=== PATIENT | female | born 1945 | race African-American/Black ===

== ENCOUNTER 2017-03-19 12:43 | Emergency (ER) | payer MEDICARE, BC ==
[2017-03-19 13:09] LABS: Bilirubin Small (Negative); Glucose, Urine (Dipstick) Negative (Negative)
[2017-03-19 13:10] LABS: Blood, Urine Negative (Negative); Ketone, Urine Trace mg/dL (Negative); Nitrite Negative (Negative); Protein, Urine (Dipstick) 100 mg/dL (Neg-Trace); Urobilinogen 0.2 mg/dL (0.2-1.0)
[2017-03-19 13:36] LABS: Bacteria/HPF None Seen HPF (None Seen); RBC/HPF 0-3 HPF (0-3); WBC/HPF 0-3 HPF (0-3)
[2017-03-19] MEDS ORDERED: oxyCODONE 5 MG TAB PO SCH (13:45)
[2017-03-19 13:47] LABS: Hyaline Casts/LPF 4-6 HYALINE CAST LPF (0-3 Hyaline)
[2017-03-19 13:48] LABS: Renal Epithelial None Seen HPF (0-3); Transitional Epithelial NONE SEEN HPF (0-3)
[2017-03-19 14:23] LABS: #Eosinphils 0.1 thou/uL (0.0-0.7); #Lymphocytes 1.4 thou/uL (1.20-3.40); #Monocytes 0.6 thou/uL (0.11-0.59); #Neutrophils 7.8 thou/uL (1.40-6.50); %Basophils 0.4 % (0.0-1.0); %Eosinophils 0.6 % (0.0-10.0); %Lymphocytes 13.8 % (21.0-51.0); %Monocytes 5.7 % (0.0-10.0); Hematocrit 31.3 % (36.0-47.0); Mean Platelet Volume 6.1 fL (7.4-10.4); Red Blood Cell (RBC) Count 3.29 mill/uL (4.20-5.40); White Blood Cell (WBC) Count 9.8 thou/uL (4.8-10.8)
--- NOTE | 2017-03-19 14:30 | RAD ---
LUMBAR SPINE 3 VIEWS: HISTORY: Low back pain. FINDINGS: Comparison is made with the exam of 12/30/16. Multilevel degenerative changes are seen with stable minimal anterolisthesis of L5 over S1. No comp ression fracture or bony destruction was seen. Vascular calcifications are present. IMPRESSION: Lumbar spondylosis. POS: LIZZETTE
[2017-03-19 14:51] LABS: Anion Gap 17 mmol/L (10-20); BUN (Urea Nitrogen) 28 mg/dL (9.8-20.1); Calc. Creatinine Clearance 0 mL/min (70-130); Calcium 9.4 mg/dL (7.8-10.44); Carbon Dioxide 28 mmol/L (23-31); Chloride 98 mmol/L (98-107); Estimated GFR-MDRD 34
== END 2017-03-19 18:25 | disposition home or self-care (01) ==
LOC: ERS 12:43
DX: M54.5 Low back pain (principal); G89.29 Other chronic pain; I10 Essential (primary) hypertension
CPT/HCPCS: 36415; 51701; 72100; 80048; 81003; 81015; 85025; 96360; A4353

== ENCOUNTER 2017-03-22 15:16 | Outpatient (CLI) | payer MEDICARE, BC ==
--- NOTE | 2017-03-22 17:26 | MRI ---
NONCONTRAST ENHANCED MRI IMAGES LUMBAR SPINE: 03/22/17 HISTORY: Back pain. COMPARISON: Comparison made to previous CT from 02/07/17. Multiplanar and multisequence noncontrast enhanced MRI images lumbar spine is performed. There is a left perirenal cyst. There is interval development of a left psoas abscess at the L3 level. T12-L1: Unremarkable. L1-2: Disc desiccation is seen. There is a broad based disc bulge with bilateral facet hypertrophy r esulting in mild central spinal stenosis. The neural foramen are patent. L2-3: Disc desiccation and degeneration is seen. Modic type II changes seen in the inferior end plat e of L2 and superior end plate of L3. There is a broad based disc bulge with bilateral facet and lig amentum flavum hypertrophy resulting in moderate to severe L2-3 central and lateral recess stenosis. L3: There is a soft tissue mass compressing the left anterior L3 thecal sac. This may represent a po ssible left epidural abscess measuring approximately 10.5 x 12.7 in the axial plane and superiorly i nferiorly approximately 18.8 mm in the left L3 epidural space. L3-4: There is decreased signal on T1 weighted sequences in the inferior end plate of L3 and superio r end plate of L4 with fluid seen in the L3-4 intervertebral disc space. This is concerning for disc itis and adjacent osteomyelitis with extension involving the left psoas muscle medially compatible w ith psoas abscess. At L3-4, there is severe central and lateral recess stenosis. L4-5: Edema is again seen in the inferior end plate of L4 and superior end plate of L5 as well as fl uid in the L4-5 intervertebral disc space. There is severe facet and ligamentum flavum hypertrophy r esulting in critical L4-5 central and lateral recess stenosis. Severe bilateral neural foraminal parker rowing is also seen. There is grade anterolisthesis of L4 on L5 due to the facet hypertrophy. L5-S1: Bilateral facet hypertrophy is seen. The intervertebral disc space is unremarkable. Moderate right and mild left sided neural foraminal narrowing is seen. IMPRESSION: Significant end plate intervertebral body edema involving the inferior aspect of L3, superior and in ferior aspect of L4 and superior end plate of L5 with L3-4 and L4-5 disc signal abnormalities concer anahi for discitis. There appears to be a left sided L3 level psoas abscess. There is also a left L3 area of soft tissue density concerning for possible epidural abscess. Unfortunately, gadolinium was not given to better characterize these multiple levels of pathology. It may be worthwhile to conside r repeat exam with gadolinium to further characterize. Findings discussed with Dr. Ashley Colin at 4:46 p.m. on 03/22/17. Code CR POS: [email or web address]
== END 2017-03-22 15:17 | disposition home or self-care (01) ==
LOC: SCSMRI 15:16
PROVIDERS: ATTEND Physical Medicine & Rehabilitation
DX: M54.9 Dorsalgia, unspecified (principal)
CPT/HCPCS: 72148

== ENCOUNTER 2017-03-22 19:37 | Inpatient (IN) | payer MEDICARE, BC ==
[2017-03-22] MEDS ORDERED: Acetaminophen 500 MG TAB ONE (20:10)
[2017-03-22 20:36] LABS: #Lymphocytes 1.2 thou/uL (1.20-3.40); #Monocytes 0.4 thou/uL (0.11-0.59); #Neutrophils 7.8 thou/uL (1.40-6.50); %Basophils 0.1 % (0.0-1.0); %Eosinophils 0.1 % (0.0-10.0); %Lymphocytes 13.1 % (21.0-51.0); %Monocytes 4.2 % (0.0-10.0); Hematocrit 33.1 % (36.0-47.0); Mean Platelet Volume 6.2 fL (7.4-10.4); Red Blood Cell (RBC) Count 3.44 mill/uL (4.20-5.40); White Blood Cell (WBC) Count 9.4 thou/uL (4.8-10.8)
[2017-03-22 20:55] LABS: Lactic Acid - Sepsis 1.3 mmol/L (0.5-2.2)
[2017-03-22] MEDS ORDERED: traMADol HCl 50 MG TAB PO PRN (20:58)
[2017-03-22 21:01] LABS: ALT (SGPT) 13 U/L (8-55); AST (SGOT) 14 U/L (5-34); Alkaline Phosphatase 74 U/L (40-150); Anion Gap 18 mmol/L (10-20); BUN (Urea Nitrogen) 17 mg/dL (9.8-20.1); Bilirubin, Total 0.7 mg/dL (0.2-1.2); Calc. Creatinine Clearance 0 mL/min (70-130); Calcium 9.8 mg/dL (7.8-10.44); Carbon Dioxide 24 mmol/L (23-31); Chloride 104 mmol/L (98-107); Estimated GFR-MDRD 50; Globulin 4.8 g/dL (2.4-3.5); Protein, Total 7.8 g/dL (6.0-8.3)
[2017-03-22 21:14] LABS: PTT 25.2 SEC (22.9-36.1); Prothrombin Time 15.2 SEC (12.0-14.7)
[2017-03-22] MEDS ORDERED: Milk Of Magnesia 30 ML UDCUP PO PRN (21:38)
[2017-03-22] MEDS ORDERED: Bisacodyl 10 MG SUPP PR PRN (21:38)
[2017-03-22] MEDS ORDERED: Ondansetron HCl/PF 4 MG/2 ML Vial IVP PRN (21:38)
--- NOTE | 2017-03-22 23:54 | MRI ---
MRI LUMBAR SPINE POSTCONTRAST 03/22/17 HISTORY: Severe back pain and fever with precontrast MRI examination demonstrating abnormal findings in the l ower lumbar spine. Postcontrast imaging was suggested. COMPARISON: Precontrast MRI lumbar spine 03/22/17 obtained earlier today. FINDINGS: Fluid signal intensity was seen in the L3-4 and L4-5 intervertebral discs on the prior exam. There i s corresponding decreased signal intensity at the end plates at these levels which are not well defi gogo particularly centrally and laterally on the left. Postcontrast images demonstrate enhancement al jory the end plates and in the intervertebral discs suggesting discitis and osteomyelitis at the L3-4 and L4-5 levels. There is also mild paravertebral enhancement seen anterior to these levels consis tent with inflammatory change and infection. There is also mild enhancement of the posterior paraspi nous musculature, particularly at the L4-5 level and extending to the L5-S1 level also likely relate d to infectious and inflammatory process and myositis. As previously described, there is a fluid collection within the left psoas muscle lateral to the L3 vertebral body. This demonstrates corresponding decreased T1 weighted signal intensity centrally wit h peripheral enhancement. This measures 2 cm x 1.2 cm and is most compatible with a small left psoas abscess. Posterior to the L3 vertebral body and extending to the L3-4 intervertebral disc within the anterola teral epidural space, there is a mass-like area of heterogeneous signal intensity which demonstrated enhancement. This area of abnormal enhancement and abnormal signal intensity extends into the left neural foramen and abuts the enhancement of the left psoas muscle in the region of the left psoas ab scess, and this is likely related to phlegmon and extension of infection through the left neural for amen and into the epidural space. There is also a small rounded focus of enhancement posterior to th e L4 vertebral body in the left anterolateral aspect of the ventral subarachnoid space also likely r elated to associated phlegmon\E\infection which is contiguous with the larger mass-like structure po sterior to the L3 vertebral body. There is fluid signal intensity in the facet joints at the L3-4 and L4-5 levels with mild enhancemen t of the left L4-5 facet joints most consistent with septic facet joint arthritis. The degenerative changes in the lumbar spine were discussed on the precontrast MRI lumbar spine obta ined earlier today, please see that report for further details. There is an incompletely imaged approximately 5.6 cm increased T2 weighted signal intensity structur e in the right hepatic lobe. This demonstrates decreased T1 weighted signal intensity, but there is enhancement of this structure on the postcontrast images. There is a large right hepatic lobe puja ioma seen on CTA of the abdomen on 07/29/12 which likely accounts for this finding. Left renal cysts a re again seen with subcentimeter low signal intensity lesions in each kidney also statistically like ly representing very small cysts. IMPRESSION: 1. Discitis and osteomyelitis at the L3-4 and L4-5 levels with associated enhancement in the pa ravertebral soft tissues both anteriorly as well as posteriorly at these levels consistent with alec cent infectious/inflammatory changes. 2. Left psoas abscess with extension of abnormal enhancement through the left neural foramen at the L3-4 level and into the left aspect of the central canal anteriorly as well as anterolaterally to the thecal sac resulting in mass effect. This abnormal enhancement is likely related to extension of infectious and inflammatory changes\E\phlegmon. There is no fluid in this region to suggest that this represents an abscess at this time although this is likely related to extension of infection a nd inflammatory changes from the left psoas muscle. There is also mass-like area of enhancement seen posterior to the L4 vertebral body which is likely due to extension of the inflammatory/infectious process extending from the L3-4 level. 3. 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 4. Myositis of posterior musculature posterior to L3-4 and L4-5 levels. 5. Enhancing lesion in the right hepatic lobe. Patient demonstrated a hemangioma in the right h epatic lobe on prior CT exam on 07/29/12. It was also present on a prior study in 2008. 6. Left renal cysts with subcentimeter low signal intensity lesions in each kidney also statist ically likely representing cysts. 7. Degenerative changes in the lumbar spine are described on prior noncontrast MR of lumbar spi ne. POS: LIZZETTE
[2017-03-22] MEDS: Sodium Chloride 0.9% 1,000 ML IV SCH (23:58)
--- NOTE | 2017-03-23 01:26 | PDOC.PN ---
- Subjective Encounter Start Date: 03/23/17 Encounter Start Time: 01:00 CC: Consult called for medical management Sub: Pt came to hospital for back pain. Consult was called for medical management. Pt c/o some back pain, denies any other complaints - Objective Vital Signs & Weight: Vital Signs (12 hours) BP 03/23/17 00:46 199/96 H Result Diagrams: 03/22/17 20:20 03/22/17 20:20 Phys Exam - Physical Examination Constitutional: NAD HEENT: moist MMs Neck: no JVD Respiratory: no wheezing, no rales, no rhonchi no accessory muscle usage seen Cardiovascular: RRR, no significant murmur, no rub Gastrointestinal: soft, non-tender no guarding, no rebound tenderness Musculoskeletal: no edema moves both lower extremities Neurological: non-focal Psychiatric: normal affect, A&O x 3 Skin: no rash Dx/Plan - Plan Pt is 71 yrs old female now admitted to hospital due to back pain 1. Discitis + Possible epidural abscess: Management per primary team On iv antibiotics per Primary team ID consulted 2. HTN uncontrolled: Will continue home bp meds PRN hydralazine and clonidine. We will monitor bp closely 3. CKD stage 3: Creatinine close to baseline We will monitor creatinine closely Avoid NSAID, nephrotoxic medications 4. Anemia of chronic disease: Monitor hgb closely No need for blood transfusion at present 5. Pain + DVT prophylaxis: Management per primary team case d/w pt & RN
--- NOTE | 2017-03-23 01:31 | CON ---
DATE OF CONSULTATION: 03/22/2017 HISTORY OF PRESENT ILLNESS: Ms. Vasques is a 71-year-old female who I saw in the emergency departm ent [facility]. She complains of low back pain for the past 2 weeks. [facility] of Dr. Colin for the past several weeks for back spasms. She explains that the pain is sharp pain to the lower back and she is severely tender to palpation in the midline lumbar spine. The pain is exacerbated by ambulating. There are no paresthesias to the extremity, no weakness to t he extremity, and she does have a history of incontinence of bowel and bladder since 2009. She has an unsteady gait due to pain and appears in mild distress. An MRI of the lumbar spine without contr ast done that showed significant endplate interval, inner vertebral body edema involving the inferio r aspect of L3, superior and inferior aspect of L4 and superior and endplate of L5 with L3-L4 and L4 -L5, disk signal abnormalities concerning for diskitis. There appears to be a left-sided L3 level p soas abscess and there is also a left L3 area of soft tissue density concerning for possible epidura l abscess. Gadolinium was not given during this MRI scan. Neurosurgery was consulted for these findings on MRI. ALLERGIES: MORPHINE, PENICILLIN. CURRENT MEDICATIONS: Medications on last visit 03/19/2017 was; 1. Tramadol 100 mg p.o. t.i.d. 2. Clonidine HCL 0.2 mg p.o. at bedtime. 3. Zantac 150 mg p.o. daily 4. Multivitamin 1 each p.o. daily. 5. Minoxidil 5 mg p.o. b.i.d. 6. Levaquin 500 mg p.o. daily 7. Labetalol HCL 600 mg p.o. b.i.d. 8. Iron 65 mg p.o. daily/ 9. Furosemide 80 mg p.o. daily. 10. Fish oil 1000 mg p.o. daily. 11. Vitamin B12 of 1000 mcg p.o. daily. 12. Baclofen 10 mg p.o. t.i.d. p.r.n. 13. Baby aspirin 81 mg p.o. daily. PAST MEDICAL HISTORY: Includes seasonal allergies, genitourinary history of incontinence since 2009 , hypertension has been treated and patient is compliant. She has a history of malignancy primarily in the cervical site, treated with chemotherapy, radiation in 2010. Obesity and arthritis. FEMALE SURGICAL HISTORY: Exploratory laparotomy with myomectomy, surgical history of orthopedics bi lateral hip replacements, cataracts. PSYCHIATRIC HISTORY: No previous psychiatric history. SOCIAL HISTORY: The patient denies alcohol use. The patient denies drug use, denies illicit drug o r smoking history. REVIEW OF SYSTEMS: Ten-point review of systems was completed and is otherwise negative unless state d in the above HPI. PHYSICAL EXAMINATION: VITAL SIGNS: Pulse 115, respiratory rate 22, temperature 99.1, pain 10, O2 sat is 95% on room air, blood pressure is 206/100. GENERAL: The patient is alert and oriented x3, appears to be in mild distress. HEENT: Normocephalic, atraumatic. Hearing is intact. Moist mucous membranes. Trachea is midline. Eyes: Pupils are equal and reactive to light. Extraocular muscles are intact. Sclerae is white, nonicteric. RESPIRATORY: The patient has bilateral symmetric chest rise. Appears to be in no shortness of lev th. CARDIOVASCULAR: The patient has regular rate and rhythm. Normal S1, S2 heart sounds. No distal cy anosis or clubbing. MUSCULOSKELETAL: The patient has 5/5 strength in bilateral upper extremities and 5/5 strength in bi lateral lower extremities. Pulses are equal and symmetric in the upper extremity in the brachial an d radial pulses and bilaterally in the lower extremities, bilaterally in the posterior tibial pulses . She is tender to palpation in the midline lumbar spine. Denies any radicular symptoms in the low er extremities. NEUROLOGIC: Cranial nerves II-XII are grossly intact. Speech is fluent. She answers my questions appropriately. ASSESSMENT: Ms. Vasques is a 71-year-old female who presented with extreme low back pain and back spasms. She was found to have a left-sided L3 level psoas abscess and an L3 epidural abscess. PLAN: Ms. Vasques will be admitted by Medicine. I put a consult in for Dr. Schulte, Infectious Dise ase. I will add Tylenol for fever over 101. I will also add tramadol 50-100 mg q.6 hours p.r.n. fo r pain. We will get an MRI of the lumbar spine with contrast. We will do type and screen, get bloo d cultures, ESR, CRP, PTT and INR and we will make her diet n.p.o. The epidural abscess is big enou gh that we may remove it tomorrow. If there are any further questions, please feel free to contact Neurosurgery.
[2017-03-23 04:45] VITALS: BMI 41.2
[2017-03-23] MEDS: Labetalol HCl 100 MG TAB PO SCH ×2 (06:48→19:57)
--- NOTE | 2017-03-23 07:21 | PRG ---
DATE OF SERVICE: 03/23/2017 I personally interviewed and examined the patient and agree with documentation of Tiago Puckett PA-C, dated 03/22/2017. Briefly, Sam Vasques is a 71-year-old woman who has had 2-3 weeks of low back pain increasing i n severity. The pain got so severe that 2 weeks ago she came to our emergency department with inabi lity to stand. She returned to our emergency department with worsening of the pain and weakness. M R imaging of the spine reveals likely diskitis osteomyelitis with epidural extension and epidural ab scess in the ventral and dorsal epidural space. This involves multiple segments of the lumbar spine . She does not, interestingly, give a her history of diabetes. I am seeing Ms. Vasques this morning after admission and she seems to be comfortable as long as she is not moving whatsoever. When I try to assess her hip flexors she begins to have significant low back and radiating leg pain, there is radicular pain, especially on the right, but also on the left lower extremity. This prevents a full examination of her strength, but she can wiggle her toes. Sh brad can appreciate touch all the way down to the bottom of her feet. She has chronic longstanding inc ontinence. I reviewed the MR images and I am concerned about a fluid collection within the spinal canal. I discussed decompressive laminectomy and washout of her spontaneous epidural abscess. INFORMED CONSENT: I discussed indications, risks, benefits, and alternatives to surgery. The risks discussed included, but were not limited to bleeding, infection, CSF leak, nerve damage, paralysis, incontinence, wheelchair dependence, cardiopulmonary complications of anesthesia, major blood vesse l injury and . She understands the risks and wants to proceed.
[2017-03-23] MEDS ORDERED: Levofloxacin 500 mg/D5W 100 ml Premix Bag ONE (11:05)
[2017-03-23] MEDS ORDERED: Fentanyl 100 MCG/2 ML VIAL ONE ×2 (11:05→13:11)
[2017-03-23] MEDS ORDERED: Thrombin 5000 UNITS/5 ML VIAL ONE (12:10)
[2017-03-23] MEDS ORDERED: Bupivacaine HCl 0.5%/Epinephrine 1:200,000/PF 30 ml Vial ONE (12:10)
[2017-03-23] MEDS ORDERED: Bacitracin Zinc Ointment 30 gm TUBE ONE (12:10)
[2017-03-23] MEDS ORDERED: Sodium Chloride 0.9% 20 ML ONE (12:10)
--- NOTE | 2017-03-23 12:35 | PQF ---
DATE: 03-23-17 ATTN: DR. ZOE BOO Please exercise your independent, professional judgment in responding to the clarification form. Clinical indicators are provided on the bottom of this form for your review Please check appropriate box(s): BMI > 40 with associated diagnosis of: (check one) [ x ] Morbid (Severe) Obesity [ ] Due to excess calories [ ] with Alveolar Hypoventilation (Pickwickian syndrome) [ ] Overweight [ ] Obesity [ ] Other diagnosis [ ] Unable to determine In addition, please specify: Present on Admission (POA): [ ] Yes [ ] No [ ] Unable to Determine For continuity of documentation, please document condition throughout progress notes and discharge summary. Thank You. BMI < 19 Under weight 19 - 24.9 Healthy 25.0 - 29.9 Slightly Overweight 30.0 - 34.9 Obese 35.0 - 39.9 Severely Obese 40.0 and Over Morbidly Obese CLINICAL INDICATORS - SIGNS / SYMPTOMS / LABS BMI: 41.2 NURSE NOTE 03-22-17: 2 PERSON ASSIST NURSE NOTE 03-22-17: TRANSFERRED TO BED WITH 4 PERSON ASSIST RISK FACTORS: NURSE NOTE 03-22-17: 2 PERSON ASSIST NURSE NOTE 03-22-17: TRANSFERRED TO BED WITH 4 PERSON ASSIST H&P: HX OF INCONTINENCE, HX OF MALIGNANCY TO CERVICAL CA TREATED WITH CHEMO, C/O BACK PAIN TREATMENTS: NURSE NOTE 03-22-17: 2 PERSON ASSIST NURSE NOTE 03-22-17: TRANSFERRED TO BED WITH 4 PERSON ASSIST (This form is maintained as a part of the permanent medical record) 2014 [employer]. All Rights Reserved DIANNA [email or web address] Office: [phone] [facility] HOSPITALAlexia
[2017-03-23] MEDS: Gabapentin 300 MG CAP PO SCH ×3 (12:40→19:55)
[2017-03-23] MEDS ORDERED: Clindamycin/D5W 900 mg/50 ml Premix Bag ONE (13:10)
[2017-03-23] MEDS ORDERED: Metoclopramide HCl 10 MG/2 ML VIAL ONE (13:21)
[2017-03-23] MEDS ORDERED: Propofol 200 MG/20 ML VIAL ONE (13:21)
[2017-03-23] MEDS ORDERED: Ondansetron HCl/PF 4 MG/2 ML Vial ONE (13:21)
[2017-03-23] MEDS ORDERED: Esmolol 100 MG/10 ML VIAL ONE (13:21)
[2017-03-23] MEDS ORDERED: Glycopyrrolate 0.2 MG/ML 5 ML SYRINGE ONE (13:21)
[2017-03-23] MEDS ORDERED: Hetastarch 6% 500 ML 500 ML ONE (15:37)
[2017-03-23] MEDS ORDERED: Promethazine HCl 25 MG/ML VIAL SLOW IVP PRN (16:46)
[2017-03-23] MEDS ORDERED: Ondansetron HCl/PF 4 MG/2 ML Vial IVP PRN (16:46)
[2017-03-23] MEDS ORDERED: Promethazine HCl 25 MG/ML VIAL IM PRN (16:46)
[2017-03-23] MEDS: Sodium Chloride 0.9% 1,000 ML IV SCH ×2 (17:18→18:34)
[2017-03-23] MEDS: traMADol HCl 50 MG TAB PO PRN (18:13)
[2017-03-23] MEDS: Diazepam 5 MG TAB PO SCH ×2 (18:34→23:29)
--- NOTE | 2017-03-23 20:23 | OP ---
DATE OF SURGERY: 03/23/2017 SURGEON: Fan Guzman M.D. DIRECTOR OF FINANCE: Tiago Puckett PA-C, PREOPERATIVE INDICATION: Obtained sample for culture, prevent neurological deterioration. PREOPERATIVE DIAGNOSES: Diskitis, osteomyelitis L3-4 and L4-5, epidural abscess L3, spinal stenosis L2-S1. POSTOPERATIVE DIAGNOSIS: Diskitis, osteomyelitis L3-4 and L4-5, epidural abscess L3, spinal stenosi s L2-S1. OPERATIVE PROCEDURE: Decompressive laminectomy, medial facetectomy, foraminotomy L2-3, L3-4, L4-5, L5-S1, removal of ventral epidural abscess L3, sample of L3-4 and L4-5 disk space for culture. PREOPERATIVE MEDICATION: None. Antibiotics given after cultures were obtained, clindamycin 900 mg, Levaquin 500 mg IV. DRAIN NUMBER: 2. DRAIN TYPE: 10 Faro[place] Jorge. OPERATIVE DICTATION: The patient was brought to the operating room. General endotracheal anesthesi a was induced. The patient was positioned prone on the operating table with her chest and hips supp orted by gel-filled chest rolls. A lateral fluoro radiograph was used to plan our incision. The [facility] skin was sterilely prepped and draped. We opened with a 10 blade knife and controlled bleeding with bipolar and monopolar cautery. We used monopolar cautery to dissect through the subcutaneous tissues to the thoracodorsal fascia. We incised the fascia in the midline and we reflected the para spinal muscles off the spinous process and lamina of L2, L3, L4, L5 and the superior portion of the sacrum. A lateral fluoro radiograph was used to confirm the levels upon which we were operating. W e placed self-retaining retractors. We then used an Adson rongeur to remove the spinous process of the inferior portion of L2, all of L3, L4, L5, and S1. We used Kerrison rongeur to fashion a viktoria ctomy from the inferior portion of L5 to the pedicles of L2. We widened our laminectomy defect with Kerrison rongeurs and performed a medial facetectomy to decompress the lateral recesses. We remove d few millimeters of the sacrum. We made sure that the L2-3, L4-5 and S1 nerve roots were decompres sed both in the lateral recesses and in the foramina by performing foraminotomies. We then turned o ur attention to the infectious process. Careful retraction of the thecal sac medially at L3 in the ventral epidural space, there was a soft tissue component there. This was under the L3 nerve root a nd under the thecal sac medial to the pedicle. The ventral epidural soft tissue was degenerative di sk that come out through a small hole in the annulus. The disk itself seemed extremely degenerative and perhaps infectious. We sent multiple samples for pathology. We then incised the L3-4 disk spa ce. Using pituitary rongeur, we removed small fragments of disk from the disk space itself. In the disk space removed, we sent it for culture as well and finally, at the L4-5 interspace, we incised the disk and then advanced the pituitary rongeur through our opening into the space to take samples there as well. We irrigated with bacitracin irrigation after samples were taken and gave IV antibio tics. We controlled bleeding with gentle bipolar cautery and waxed the bone edges. We placed two d rains and vancomycin powder in the wound. We closed the wound in anatomic layers over the drain and we applied a sterile dressing. This was a clean case and no contamination.
[2017-03-23] MEDS ORDERED: Furosemide 40 MG TAB PO SCH (21:00)
[2017-03-23] MEDS: Clindamycin/D5W 600 MG in Premix Bag 1 BAG IVPB SCH (21:36)
[2017-03-23] MEDS: HYDROcodone/Acetaminophen 10/325 mg Tablet PO PRN (21:36)
[2017-03-23] MEDS: Vancomycin HCl 1.25 GM in Sodium Chloride 0.9% 250 ML 250 ML IVPB SCH (23:27)
[2017-03-24] MEDS: tiZANidine HCl 4 MG TAB PO PRN ×3 (02:17→21:52)
[2017-03-24] MEDS: Diazepam 5 MG TAB PO SCH ×4 (05:20→23:54)
[2017-03-24] MEDS: Clindamycin/D5W 600 MG in Premix Bag 1 BAG IVPB SCH ×3 (05:20→21:57)
[2017-03-24] MEDS: Sodium Chloride 0.9% 1,000 ML IV SCH ×2 (05:21→16:43)
[2017-03-24] MEDS: Multivitamin W/ Minerals 1 TAB PO SCH (08:17)
[2017-03-24] MEDS: Gabapentin 300 MG CAP PO SCH ×3 (08:17→21:53)
[2017-03-24] MEDS: Labetalol HCl 100 MG TAB PO SCH ×2 (08:18→21:52)
[2017-03-24] MEDS: Acetaminophen 325 MG TAB PO PRN (08:21)
--- NOTE | 2017-03-24 10:15 | PDOC.PN ---
- Subjective Encounter Start Date: 03/24/17 Encounter Start Time: 09:30 Subjective: has pain at surgical site, no sob -: is moving lower extremities - Objective MAR Reviewed: Yes Vital Signs & Weight: Vital Signs (12 hours) Temp Pulse Resp BP BP Pulse Ox 03/24/17 08:18 98 150/69 H 03/24/17 08:17 93 150/69 H 03/24/17 07:39 100.7 F H 98 22 H 150/69 H 93 L 03/24/17 04:00 97.9 F 93 16 109/62 97 03/24/17 00:00 98.2 F 86 18 120/69 99 I&O: 03/23/17 03/24/17 03/25/17 06:59 06:59 06:59 Intake Total 1200 Output Total 35 Balance 1200 -35 Result Diagrams: 03/22/17 20:20 03/22/17 20:20 Phys Exam - Physical Examination HEENT: PERRLA, moist MMs Neck: no JVD, supple Respiratory: no wheezing, no rales Cardiovascular: RRR, no significant murmur Gastrointestinal: soft, non-tender, positive bowel sounds Musculoskeletal: no edema, pulses present Neurological: non-focal, moves all 4 limbs Psychiatric: A&O x 3 Dx/Plan (1) Epidural abscess Code(s): G06.2 - EXTRADURAL AND SUBDURAL ABSCESS, UNSPECIFIED Status: Acute Comment: s/p evacuation (2) Discitis of lumbar region Code(s): M46.46 - DISCITIS, UNSPECIFIED, LUMBAR REGION Status: Acute (3) Osteomyelitis Code(s): M86.9 - OSTEOMYELITIS, UNSPECIFIED Status: Acute Qualifiers: Osteomyelitis type: unspecified type Comment: of L3-4, L4-5, s/p decompressive laminectomy 03/23/2017 (4) Anemia Code(s): D64.9 - ANEMIA, UNSPECIFIED Status: Chronic Qualifiers: Anemia type: unspecified type Qualified Code(s): D64.9 - Anemia, unspecified (5) CKD (chronic kidney disease) stage 3, GFR 30-59 ml/min Code(s): N18.3 - CHRONIC KIDNEY DISEASE, STAGE 3 (MODERATE) Status: Chronic (6) DM type 2 (diabetes mellitus, type 2) Status: Chronic Qualifiers: Diabetes mellitus complication status: with kidney complications Diabetes mellitus complication detail: with chronic kidney disease Diabetes mellitus senior care insulin use: without senior care use Chronic kidney disease stage: stage 3 (moderate) Qualified Code(s): E11.22 - Type 2 diabetes mellitus with diabetic chronic kidney disease; N18.3 - Chronic kidney disease, stage 3 ( moderate) (7) Obesity Code(s): E66.9 - OBESITY, UNSPECIFIED Status: Chronic Qualifiers: Obesity type: unspecified obesity type Comment: BMI of 41 (8) Osteoarthritis Code(s): M19.90 - UNSPECIFIED OSTEOARTHRITIS, UNSPECIFIED SITE Status: Chronic Qualifiers: Osteoarthritis location: shoulder Osteoarthritis type: unspecified Laterality: bilateral Qualified Code(s): M19.011 - Primary osteoarthritis, right shoulder; M19.012 - Primary osteoarthritis, left shoulder - Plan is on clindamycin and vancomycin -: await final cultures -: oral iron, has severe b/l shoulder arthritis -: continue current meds for dm, htn -: PT per nsx advice, will need rehab for dc plan * . Review of Systems - Medications/Allergies Allergies/Adverse Reactions: Allergies Allergy/AdvReac Type Severity Reaction Status Date / Time morphine Allergy Verified 12/30/16 14:50 Penicillins Allergy Verified 12/30/16 14:50 Medications: Current Medications Acetaminophen (Tylenol) 650 mg PO Q6H PRN PRN Reason: Fever > 101 Last Admin: 03/24/17 08:21 Dose: 650 mg Hydrocodone Bitart/Acetaminophen ([place] 10/325) 1 tab PO DAILYPRN PRN PRN Reason: Moderate Pain (4-6) Last Admin: 03/23/17 21:36 Dose: 1 tab Bisacodyl (Dulcolax) 10 mg [place] Q12H PRN PRN Reason: Constipation Clonidine HCl (Catapres) 0.2 mg PO HS [facility] Last Admin: 03/23/17 19:56 Dose: 0.2 mg Diazepam (Valium) 5 mg PO Q6HR KASSANDRA Last Admin: 03/24/17 05:20 Dose: 5 mg Furosemide (Lasix) 40 mg PO HS KASSANDRA Last Admin: 03/23/17 19:56 Dose: 40 mg Gabapentin (Neurontin) 300 mg PO TID KASSANDRA Last Admin: 03/24/17 08:17 Dose: 300 mg Hydralazine HCl (Apresoline) 50 mg PO TID [facility] Last Admin: 03/24/17 08:17 Dose: 50 mg Sodium Chloride (Normal Saline 0.9%) 1,000 mls @ 100 mls/hr IV .Q10H [facility] Last Admin: 03/24/17 05:21 Dose: Not Given Clindamycin Phosphate/Dextrose (600 mg/ Device) 50 mls @ 100 mls/hr IVPB Q8HR [facility] Last Admin: 03/24/17 05:20 Dose: 50 mls Vancomycin HCl 1.25 gm/ Sodium (Chloride) 250 mls @ 166.67 mls/hr IVPB 1200, 2359 [facility] Last Admin: 03/23/17 23:27 Dose: 250 mls Iron/Minerals/Multivitamins (Theragran M) 1 tab PO DAILY [facility] Last Admin: 03/24/17 08:17 Dose: 1 tab Labetalol HCl (Normodyne) 300 mg PO BID [facility] Last Admin: 03/24/17 08:18 Dose: 300 mg Magnesium Hydroxide (Milk Of Magnesium) 30 ml PO Q12H PRN PRN Reason: Constipation Ondansetron HCl (Zofran) 4 mg IVP Q6H PRN PRN Reason: Nausea/Vomiting Last Admin: 03/22/17 23:55 Dose: 4 mg Sodium Chloride (Flush - Normal Saline) 10 ml IVF PRN PRN PRN Reason: Saline Flush Tizanidine HCl (Zanaflex) 4 mg PO Q6H PRN PRN Reason: Muscle Spasm Last Admin: 03/24/17 02:17 Dose: 4 mg Tramadol HCl (Ultram) 50 mg PO Q6H PRN PRN Reason: Pain 1-5 Tramadol HCl (Ultram) 100 mg PO Q6H PRN PRN Reason: Pain 6-10 Last Admin: 03/23/17 18:13 Dose: 100 mg
[2017-03-24] MEDS ORDERED: Dextrose 5% in Water 1,000 ML IV PRN (10:19)
[2017-03-24] MEDS ORDERED: Dextrose 50% Abboject 50 ML SYRINGE SLOW IVP PRN (10:19)
--- NOTE | 2017-03-24 11:02 | PRG ---
DATE OF SERVICE: 03/24/2017 Jitendra Jimenez PA-C dictating for Dr. Heriberto Castro SUBJECTIVE: Ms. Vasques is now hospital day #2 having undergone laminectomy with culturing by Dr. Guzman. The patient currently has a drain in and we will keep this for the remainder of the day. Infectious Disease has also been consulted on 03/23/2017. Hospitalists are following as well as I nfectious Disease. The patient remains on antibiotics directed by them. She does appear to be at n eurologic baseline. We will again continued to drain for today and follow up tomorrow. Please call with any change in the patient's neurologic status.
[2017-03-24 11:07] LABS: Vancomycin, Trough 17.9 ug/mL
[2017-03-24] MEDS: Vancomycin HCl 1.25 GM in Sodium Chloride 0.9% 250 ML 250 ML IVPB SCH (11:34)
[2017-03-24] MEDS: HYDROcodone/Acetaminophen 10/325 mg Tablet PO PRN (13:15)
--- NOTE | 2017-03-24 14:57 | CON ---
DATE OF CONSULTATION: 03/24/2017 REASON FOR CONSULTATION: Lumbosacral spine infection. 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 The patient had an MRI, which showed findings in the lumbosacral area cons istent with infection, and she was referred for admission. The patient has been started on clindamy destiny, Rocephin, and had a surgical intervention by Dr. Guzman. No obvious purulence was noted, bu t there were some areas of concern for infection of the disk. She had a laminectomy and decompressi ve surgery. She also had what appeared to be a phlegmon in the epidural area. Currently, she is rodriguez ving moderate pain, the area that bothers her the most are the shoulders actually. No headaches, vi sual symptoms, sore throat, odynophagia, dysphagia, no toothache, no thoracic spine pain. No dyspne a, cough, or sputum production, no abdominal pain. She is incontinent of urine, but she has no urin thomas retention. No other joint inflammatory activity noted. PAST MEDICAL HISTORY: Cervical cancer, in remission after chemoradiation therapy; hypertension; ost eoarthritis; rotator cuff disease; bilateral obesity. PAST SURGICAL HISTORY: Also includes an exploratory lap with myomectomy, bilateral hip replacements . 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 ALLERGIES: MORPHINE and PENICILLIN with rash. CURRENT MEDICATIONS: , [place], Dulcolax, clindamycin, Catapres, Valium, Lasix, Neurontin, Gluco trol, hydralazine, labetalol, tramadol, and vancomycin. FAMILY HISTORY: Noncontributory. PHYSICAL EXAMINATION: VITAL SIGNS: T-max 100.7, BP 130/60, pulse 87, respirations 14-22, O2 sat 95%. SKIN EXAMINATION: Area of ulceration, perianal region, right side, and no lymphadenopathy. Periphe ral IV access. No Tineo catheter. HEENT: Ocular movements are conjugate. Pale conjunctivae. Nasal passages patent. Oral cavity sti ll quite a few teeth in place with quite a bit of decay. No other lesions. NECK: Supple, no jugular venous distention. LUNGS: With symmetric clear breath sounds. HEART: S1, S2, regular rate. No S3 or S4. ABDOMEN: Soft, not distended or tender. Question of bladder distention. EXTREMITIES: The patient has marked limitation of range of motion of both right and left shoulders, which is chronic. The lumbosacral spine surgical sites with usual appearance. Pulses are 1+ in do rsalis pedis and posterior tibialis cap refill is normal. She is able to move all extremities on co mmand with limitations imposed by the shoulder, degenerative disease, and by the post-op state. NEUROLOGIC: Cognitive function appears to be intact. LABORATORY DATA: INR 1.2. White cell count 9.4, hemoglobin 10, platelets 403, 80% neutrophils. So dium 142, creatinine 1.28. Liver profile normal. Albumin 3.0. Vancomycin trough 17.9. Microbiolo gy: All the samples submitted. The gram stain did not show any organisms. The first one had no WB Cs seen; the second again, no WBC seen; the third had many or rare WBCs seen with many RBCs; and the fourth had rare WBCs with moderate RBCs seen. The lumbosacral spine MRI with fluid signal intensit y of L3-4, L4-5, decreased signal intensity at the endplates, enhancement along the endplates sugges tive of osteomyelitis and diskitis and mild paravertebral enhancement, mild enhancement of the poste rior paraspinous musculature as well, fluid collection within the left psoas muscle lateral to L3 ve rtebral body. ASSESSMENT: Hypertension, osteoarthritis with LS spine changes consistent with diskitis, early oste omyelitis, and possible psoas muscle abscess. Usual pathogens including Staphylococcus aureus/methi cillin-resistant Staphylococcus aureus, Streptococci, Propionibacterium, gram negative rods to be co nsidered. Continue vancomycin and start Rocephin. Discontinue clindamycin. Monitor cultures. PIC C line placement and protracted treatment with IV antimicrobials. She will probably need placement in a rehab or some skilled unit to complete treatment at least for the first few weeks.
[2017-03-24 23:15] LABS: Vancomycin, Trough 23.3 ug/mL
[2017-03-25 05:51] LABS: #Lymphocytes 1.7 thou/uL (1.20-3.40); #Monocytes 0.8 thou/uL (0.11-0.59); #Neutrophils 6.5 thou/uL (1.40-6.50); %Basophils 0.2 % (0.0-1.0); %Eosinophils 0.4 % (0.0-10.0); %Lymphocytes 18.9 % (21.0-51.0); %Monocytes 8.9 % (0.0-10.0); Hematocrit 24.5 % (36.0-47.0); Mean Platelet Volume 6.2 fL (7.4-10.4); Red Blood Cell (RBC) Count 2.55 mill/uL (4.20-5.40); White Blood Cell (WBC) Count 9.1 thou/uL (4.8-10.8)
[2017-03-25 06:23] LABS: ALT (SGPT) 9 U/L (8-55); AST (SGOT) 12 U/L (5-34); Alkaline Phosphatase 53 U/L (40-150); Anion Gap 10 mmol/L (10-20); BUN (Urea Nitrogen) 15 mg/dL (9.8-20.1); Bilirubin, Total 0.6 mg/dL (0.2-1.2); Calc. Creatinine Clearance 73 mL/min (70-130); Calcium 7.8 mg/dL (7.8-10.44); Carbon Dioxide 27 mmol/L (23-31); Chloride 104 mmol/L (98-107); Estimated GFR-MDRD 51; Globulin 3.6 g/dL (2.4-3.5); Protein, Total 5.8 g/dL (6.0-8.3)
[2017-03-25] MEDS: Sodium Chloride 0.9% 1,000 ML IV SCH ×3 (06:25→18:13)
[2017-03-25] MEDS: Clindamycin/D5W 600 MG in Premix Bag 1 BAG IVPB SCH ×3 (06:26→23:13)
[2017-03-25] MEDS: Diazepam 5 MG TAB PO SCH ×4 (06:26→23:15)
[2017-03-25] MEDS: Multivitamin W/ Minerals 1 TAB PO SCH (08:21)
[2017-03-25] MEDS: Gabapentin 300 MG CAP PO SCH ×3 (08:21→20:19)
[2017-03-25] MEDS: glipiZIDE 5 MG TAB PO SCH (08:21)
[2017-03-25] MEDS: Furosemide 40 MG TAB PO SCH (08:21)
[2017-03-25] MEDS: Acetaminophen 325 MG TAB PO PRN (08:22)
[2017-03-25] MEDS: Labetalol HCl 100 MG TAB PO SCH ×2 (08:22→20:20)
[2017-03-25] MEDS: Vancomycin HCl 1 GM in Premix Bag 1 BAG IVPB SCH ×2 (08:22→20:22)
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
--- NOTE | 2017-03-25 12:45 | PRG ---
DATE OF SERVICE: 03/25/2017 Ms. Vasques is postoperative day 2 from lumbar decompression for epidural abscess. She does state as though she feels as if her low back and leg pain are improved. She is about to mobilize with phy sical therapy. She activates all myotomes in her lower extremities and her drain output has been 35 mL. Given the infectious nature of her pathology, we will leave her drain in today. She is on ant ibiotics.
[2017-03-25] MEDS: HumaLOG 300 UNITS/3 ML VIAL SC PRN ×3 (12:52→20:21)
[2017-03-25] MEDS: HYDROcodone/Acetaminophen 10/325 mg Tablet PO PRN (18:12)
[2017-03-25] MEDS: tiZANidine HCl 4 MG TAB PO PRN (20:19)
[2017-03-26] MEDS: Acetaminophen 325 MG TAB PO PRN ×2 (00:40→23:55)
[2017-03-26] MEDS ORDERED: Acetaminophen 325 MG TAB PO SCH ×2 (05:15→08:40)
[2017-03-26] MEDS: Clindamycin/D5W 600 MG in Premix Bag 1 BAG IVPB SCH ×2 (05:22→14:54)
[2017-03-26] MEDS: Diazepam 5 MG TAB PO SCH ×4 (05:22→23:55)
[2017-03-26] MEDS: HumaLOG 300 UNITS/3 ML VIAL SC PRN ×2 (06:48→23:55)
--- NOTE | 2017-03-26 06:53 | PRG ---
DATE OF SERVICE: 03/26/2017 I saw Ms. Vasques in her hospital bed this morning. She tells me she has not been much out of bed with physical therapy over the weekend. Her drain is continuing to slowly draining fluid from her i ncision. My plan is to begin to mobilize Ms. Vasques with physical therapy. We will wait for the cultures t o be finalized. We will see if the microbiology lab is able to perform any fungal cultures on the t issue they may have remaining because the bacterial cultures have been negative to date. Ms. Vasques would benefit from more aggressive therapy and inpatient rehabilitation.
--- NOTE | 2017-03-26 07:01 | PRG ---
DATE OF SERVICE: 03/26/2017 SUBJECTIVE: Ms. Vasques is a 71-year-old female who I saw in her room this morning. There are no new acute events overnight. There are no new neurologic deficits on exam. She was visited by Dr. Chet bhandari 2 days ago, who suggested PICC line placement and antibiotics for several weeks thereafter. Th morning, she will work with physical therapy. Her white blood cell count is 9.1 yesterday gualberto connor. She has 4/5 strength in bilateral lower extremities. Overnight, her drain output was 85 mL. We will look at discontinuing her drain later on today or tomorrow morning. If there are any further questions, please feel free to contact Neurosurgery.
[2017-03-26] MEDS: Sodium Chloride 0.9% 1,000 ML IV SCH ×2 (07:47→17:10)
[2017-03-26] MEDS: glipiZIDE 5 MG TAB PO SCH (08:31)
[2017-03-26] MEDS: Vancomycin HCl 1 GM in Premix Bag 1 BAG IVPB SCH (08:31)
[2017-03-26] MEDS: Furosemide 40 MG TAB PO SCH (08:31)
[2017-03-26] MEDS: Multivitamin W/ Minerals 1 TAB PO SCH (08:31)
[2017-03-26] MEDS: Gabapentin 300 MG CAP PO SCH ×3 (08:31→22:41)
[2017-03-26] MEDS: Labetalol HCl 100 MG TAB PO SCH ×2 (08:32→22:38)
[2017-03-26 08:35] LABS: Vancomycin, Trough 25.3 ug/mL
[2017-03-26] MEDS: HYDROcodone/Acetaminophen 10/325 mg Tablet PO PRN (08:36)
--- NOTE | 2017-03-26 12:11 | PDOC.PN ---
- Subjective Encounter Start Date: 03/26/17 Encounter Start Time: 10:40 Patient seen and examined. No new complaints. No overnight events, has fever today, c/o right forearm pain - Objective MAR Reviewed: Yes Vital Signs & Weight: Vital Signs (12 hours) Temp Pulse Resp BP Pulse Ox 03/26/17 08:32 82 03/26/17 08:31 82 03/26/17 07:38 98.6 F 82 24 H 117/66 93 L 03/26/17 04:00 100 F H 93 14 134/68 93 L I&O: 03/25/17 03/26/17 03/27/17 06:59 06:59 06:59 Intake Total 820 1750 1260 Output Total 40 85 Balance 780 1665 1260 Result Diagrams: 03/25/17 04:55 03/25/17 04:55 Additional Labs: Accuchecks 03/26/17 03/26/17 03/25/17 11:20 05:59 20:08 POC Glucose 161 H 174 H 210 H 03/25/17 03/25/17 15:37 05:48 POC Glucose 182 H 165 H Phys Exam - Physical Examination Constitutional: NAD HEENT: PERRLA, moist MMs, sclera anicteric Neck: no JVD, supple Respiratory: no wheezing, no rales, no rhonchi Cardiovascular: RRR, no significant murmur, no rub Gastrointestinal: soft, non-tender, no distention, positive bowel sounds Musculoskeletal: no edema, pulses present right forearm movement is limited due to pain Neurological: non-focal Psychiatric: normal affect Dx/Plan (1) Discitis of lumbar region Code(s): M46.46 - DISCITIS, UNSPECIFIED, LUMBAR REGION Status: Acute (2) Epidural abscess Code(s): G06.2 - EXTRADURAL AND SUBDURAL ABSCESS, UNSPECIFIED Status: Acute Comment: s/p evacuation (3) Osteomyelitis Code(s): M86.9 - OSTEOMYELITIS, UNSPECIFIED Status: Acute Qualifiers: Osteomyelitis type: unspecified type Comment: of L3-4, L4-5, s/p decompressive laminectomy 03/23/2017 (4) Chronic back pain Code(s): M54.9 - DORSALGIA, UNSPECIFIED; G89.29 - OTHER CHRONIC PAIN Status: Acute Qualifiers: Back pain location: low back pain Back pain laterality: midline Sciatica presence: without sciatica Qualified Code(s): M54.5 - Low back pain; G89.29 - Other chronic pain (5) UTI (urinary tract infection) Status: Acute Qualifiers: Urinary tract infection type: acute cystitis Hematuria presence: without hematuria Qualified Code(s): N30.00 - Acute cystitis without hematuria (6) Anemia Code(s): D64.9 - ANEMIA, UNSPECIFIED Status: Chronic Qualifiers: Anemia type: unspecified type Qualified Code(s): D64.9 - Anemia, unspecified (7) CKD (chronic kidney disease) stage 3, GFR 30-59 ml/min Code(s): N18.3 - CHRONIC KIDNEY DISEASE, STAGE 3 (MODERATE) Status: Chronic (8) DM type 2 (diabetes mellitus, type 2) Status: Chronic Qualifiers: Diabetes mellitus complication status: with kidney complications Diabetes mellitus complication detail: with chronic kidney disease 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: without skilled nursing use Chronic kidney disease stage: stage 3 (moderate) Qualified Code(s): E11.22 - Type 2 diabetes mellitus with diabetic chronic kidney disease; N18.3 - Chronic kidney disease, stage 3 ( moderate) (9) Obesity Code(s): E66.9 - OBESITY, UNSPECIFIED Status: Chronic Qualifiers: Obesity type: unspecified obesity type Comment: BMI of 41 (10) Osteoarthritis Code(s): M19.90 - UNSPECIFIED OSTEOARTHRITIS, UNSPECIFIED SITE Status: Chronic Qualifiers: Osteoarthritis location: shoulder Osteoarthritis type: unspecified Laterality: bilateral Qualified Code(s): M19.011 - Primary osteoarthritis, right shoulder; M19.012 - Primary osteoarthritis, left shoulder - Plan cont current plan of care, continue antibiotics * continue clindamycin, vancomycin * follow culture result * final antibiotics selection will defer to dr stevenson * will get CT right upper extrimity for her forearm pain evaluation * medication reviewed as below * symptomatic treatment.. Review of Systems - Review of Systems Constitutional: Fever, Weakness. negative: Chills, Sweats, Malaise, Other Eyes: negative: Pain, Vision Change, Conjunctivae Inflammation, Eyelid Inflammation, Redness, Other ENT: negative: Ear Pain, Ear Discharge, Nose Pain, Nose Discharge, Nose Congestion, Mouth Pain, Mouth Swelling, Throat Pain, Throat Swelling, Other Respiratory: negative: Cough, Dry, Shortness of Breath, Hemoptysis, SOB with Excertion, Pleuritic Pain, Sputum, Wheezing Cardiovascular: negative: Chest Pain, Palpitations, Orthopnea, Paroxysmal Noc. Dyspnea, Edema, Light Headedness, Other Gastrointestinal: negative: Nausea, Vomiting, Abdominal Pain, Diarrhea, Constipation, Melena, Hematochezia, Other Musculoskeletal: Shoulder Pain, Arm Pain. negative: Neck Pain, Back Pain, Hand Pain, Leg Pain, Foot Pain, Other - Medications/Allergies Allergies/Adverse Reactions: Allergies Allergy/AdvReac Type Severity Reaction Status Date / Time morphine Allergy Verified 12/30/16 14:50 Penicillins Allergy Verified 12/30/16 14:50 Medications: Current Medications Acetaminophen (Tylenol) 650 mg PO Q6H PRN PRN Reason: Fever > 101 Last Admin: 03/26/17 00:40 Dose: 650 mg Hydrocodone Bitart/Acetaminophen ([place] 10/325) 1 tab PO Q8H PRN PRN Reason: Pain (4-10) Last Admin: 03/26/17 08:36 Dose: 1 tab Bisacodyl (Dulcolax) 10 mg [place] Q12H PRN PRN Reason: Constipation Clonidine HCl (Catapres) 0.2 mg PO HS [facility] Last Admin: 03/25/17 20:20 Dose: 0.2 mg Dextrose/Water (Dextrose 50%) 25 gm SLOW IVP PRN PRN PRN Reason: Hypoglycemia Diazepam (Valium) 5 mg PO Q6HR [facility] Last Admin: 03/26/17 05:22 Dose: 5 mg Furosemide (Lasix) 40 mg PO DAILY-[facility] Last Admin: 03/26/17 08:31 Dose: 40 mg Gabapentin (Neurontin) 300 mg PO TID [facility] Last Admin: 03/26/17 08:31 Dose: 300 mg Glipizide (Glucotrol) 5 mg PO DAILY-[facility] Last Admin: 03/26/17 08:31 Dose: 5 mg Glucagon (Glucagon) 1 mg IM PRN PRN PRN Reason: Hypoglycemia Hydralazine HCl (Apresoline) 50 mg PO TID [facility] Last Admin: 03/26/17 08:31 Dose: 50 mg Sodium Chloride (Normal Saline 0.9%) 1,000 mls @ 100 mls/hr IV .Q10H [facility] Last Admin: 03/26/17 07:47 Dose: Not Given Clindamycin Phosphate/Dextrose (600 mg/ Device) 50 mls @ 100 mls/hr IVPB Q8HR [facility] Last Admin: 03/26/17 05:22 Dose: 50 mls Dextrose/Water (D5w) 1,000 mls @ 0 mls/hr IV .Q0M PRN; As Directed PRN Reason: Hypoglycemia Vancomycin HCl 1.5 gm/ Sodium (Chloride) 300 mls @ 200 mls/hr IVPB 0900 [facility] Insulin Human Lispro (Humalog) 0 units SC .MODERATE SLIDING SC PRN PRN Reason: Moderate Correctional Scale Last Admin: 03/26/17 06:48 Dose: 2 unit Iron/Minerals/Multivitamins (Theragran M) 1 tab PO DAILY [facility] Last Admin: 03/26/17 08:31 Dose: 1 tab Labetalol HCl (Normodyne) 300 mg PO BID [facility] Last Admin: 03/26/17 08:32 Dose: 300 mg Magnesium Hydroxide (Milk Of Magnesium) 30 ml PO Q12H PRN PRN Reason: Constipation Ondansetron HCl (Zofran) 4 mg IVP Q6H PRN PRN Reason: Nausea/Vomiting Last Admin: 03/22/17 23:55 Dose: 4 mg Sodium Chloride (Flush - Normal Saline) 10 ml IVF PRN PRN PRN Reason: Saline Flush Tizanidine HCl (Zanaflex) 4 mg PO Q6H PRN PRN Reason: Muscle Spasm Last Admin: 03/25/17 20:19 Dose: 4 mg Tramadol HCl (Ultram) 50 mg PO Q6H PRN PRN Reason: Pain 1-5 Tramadol HCl (Ultram) 100 mg PO Q6H PRN PRN Reason: Pain 6-10 Last Admin: 03/23/17 18:13 Dose: 100 mg
[2017-03-26] MEDS: traMADol HCl 50 MG TAB PO PRN (14:53)
[2017-03-26] MEDS: tiZANidine HCl 4 MG TAB PO PRN ×2 (14:56→22:38)
--- NOTE | 2017-03-26 15:09 | RAD ---
RIGHT FOREARM 2 VIEWS: Date: 03/26/17 INDICATION: Pain. FINDINGS: No fracture or dislocation of the right forearm. No radiopaque foreign body. There is scattered dege nerative change. IMPRESSION: No acute osseous abnormality. POS: YUNIOR
[2017-03-26] MEDS: cefTRIAXone\\ROCEPHIN 2 GM in Sodium Chloride 0.9% 100 ML IVPB SCH (17:42)
[2017-03-26] MEDS ORDERED: FLU VACC TS2017-18 (>65YR) 0.5 ML SYRINGE IM ONE (21:00)
--- NOTE | 2017-03-26 23:46 | PRG ---
DATE OF SERVICE: 03/26/2017 Ms. Vasques is still about the same, still with pain, not as much as before. No shortness of breat h or abdominal pain. OBJECTIVE: VITAL SIGNS: Normal. LUNGS: Clear. HEART: S1, S2, regular rate. ABDOMEN: Soft, not distended. EXTREMITIES: Moves all extremities equally. LABORATORY DATA: White cell count 9.1, hemoglobin 7.9, MCV 95, platelets 362, creatinine 1.26, whic h is stable. All cultures from the back are negative thus far. The patient has a Klebsiella pneumoniae in the urine with a broad susceptibility profile. 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 Thus far al l cultures negative. Continue with Rocephin and vancomycin for a protracted period of time, placeme nt and rehab, PICC line insertion.
[2017-03-27] MEDS: Sodium Chloride 0.9% 1,000 ML IV SCH ×3 (05:46→22:47)
[2017-03-27] MEDS: Diazepam 5 MG TAB PO SCH ×4 (06:33→23:43)
--- NOTE | 2017-03-27 06:47 | PRG ---
DATE OF SERVICE: 03/27/2017 I am disappointed Ms. Vasques not standing and walking. I did a laminectomy, removal of presumed e pidural infection. She also had degenerative disk that looked as though they were infected at some point and those were sent for culture. Nonetheless, she needs to mobilize with physical therapy. I am going to get an ultrasound of the lower extremities and rule out deep venous thrombosis today wi th immobility.
--- NOTE | 2017-03-27 08:16 | PRG ---
DATE OF SERVICE: 03/27/2017 SUBJECTIVE: Ms. Vasques is a 71-year-old female who is being treated with her osteomyelitis and ab scess in the lumbar spine. She is status post lumbar decompression and removal of an epidural absce ss. She was then placed on antibiotics; however, she has been visited by Dr. Schulte, Infectious Dise ase, who recommend placement of PICC line for several weeks of antibiotics after she was discharged via IV. JAMILA fluid from her drain was collected yesterday that shows moderate white blood cells, no o rganisms seen. PHYSICAL EXAMINATION: VITAL SIGNS: Her vital signs have been stable overnight and slightly hypertensive at 158/70. LABORATORY DATA: Her labs this morning show hemoglobin of 7.9, hematocrit of 24.5. Her glucose is 128. She continues to work with physical therapy today. If there are any further questions, please feel free to contact Neurosurgery.
[2017-03-27] MEDS: Furosemide 40 MG TAB PO SCH (08:29)
[2017-03-27] MEDS: glipiZIDE 5 MG TAB PO SCH (08:29)
[2017-03-27] MEDS: Gabapentin 300 MG CAP PO SCH ×3 (08:30→20:29)
[2017-03-27] MEDS: Labetalol HCl 100 MG TAB PO SCH ×2 (08:31→20:30)
[2017-03-27] MEDS: Multivitamin W/ Minerals 1 TAB PO SCH (08:32)
[2017-03-27] MEDS: Vancomycin HCl 1.5 GM in Sodium Chloride 0.9% 250 ML 300 ML IVPB SCH (08:32)
--- NOTE | 2017-03-27 08:49 | ULT ---
BILATERAL LOWER EXTREMITY VENOUS DUPLEX SONOGRAM: HISTORY: Bilateral leg pain and edema. FINDINGS: Each common femoral vein and greater saphenous junction were evaluated along with each femoral, deep femoral, popliteal, and posterior tibial vein. There is good color and spectral Doppler flow, comp ression, and augmentation. IMPRESSION: No sonographic evidence of deep vein thrombosis within either lower extremity. POS: LIZZETTE
--- NOTE | 2017-03-27 10:35 | PDOC.PN ---
- Subjective Encounter Start Date: 03/27/17 Encounter Start Time: 09:35 Patient seen and examined. No new complaints. No overnight events - Objective MAR Reviewed: Yes Vital Signs & Weight: Vital Signs (12 hours) Temp Pulse Resp BP BP Pulse Ox 03/27/17 08:31 82 147/83 H 03/27/17 07:51 97.7 F 82 18 147/83 H 97 03/27/17 07:30 97.7 F 82 18 03/27/17 04:01 98.2 F 84 20 121/66 92 L 03/27/17 00:00 98.9 F 102 H 22 H 158/70 H 95 03/26/17 22:39 76 162/68 H 03/26/17 22:38 76 162/68 H Weight Admit Weight 240 lb 4.862 oz Weight 240 lb 4.862 oz I&O: 03/26/17 03/27/17 03/28/17 06:59 06:59 06:59 Intake Total 1750 1260 1360 Output Total 85 30 Balance 1665 1230 1360 Result Diagrams: 03/25/17 04:55 03/25/17 04:55 Additional Labs: Accuchecks 03/27/17 03/26/17 03/26/17 05:55 19:48 15:54 POC Glucose 128 H 244 H 155 H 03/26/17 11:20 POC Glucose 161 H Phys Exam - Physical Examination Constitutional: NAD HEENT: PERRLA, moist MMs, sclera anicteric Neck: no JVD, supple Respiratory: no wheezing, no rales, no rhonchi Cardiovascular: RRR, no significant murmur, no rub Gastrointestinal: soft, non-tender, no distention, positive bowel sounds Musculoskeletal: no edema, pulses present Lymphatic: no nodes Psychiatric: normal affect Skin: no rash, normal turgor Dx/Plan (1) Discitis of lumbar region Code(s): M46.46 - DISCITIS, UNSPECIFIED, LUMBAR REGION Status: Acute (2) Epidural abscess Code(s): G06.2 - EXTRADURAL AND SUBDURAL ABSCESS, UNSPECIFIED Status: Acute Comment: s/p evacuation (3) Osteomyelitis Code(s): M86.9 - OSTEOMYELITIS, UNSPECIFIED Status: Acute Qualifiers: Osteomyelitis type: unspecified type Comment: of L3-4, L4-5, s/p decompressive laminectomy 03/23/2017 (4) Chronic back pain Code(s): M54.9 - DORSALGIA, UNSPECIFIED; G89.29 - OTHER CHRONIC PAIN Status: Acute Qualifiers: Back pain location: low back pain Back pain laterality: midline Sciatica presence: without sciatica Qualified Code(s): M54.5 - Low back pain; G89.29 - Other chronic pain (5) UTI (urinary tract infection) Status: Acute Qualifiers: Urinary tract infection type: acute cystitis Hematuria presence: without hematuria Qualified Code(s): N30.00 - Acute cystitis without hematuria (6) Anemia Code(s): D64.9 - ANEMIA, UNSPECIFIED Status: Chronic Qualifiers: Anemia type: unspecified type Qualified Code(s): D64.9 - Anemia, unspecified (7) CKD (chronic kidney disease) stage 3, GFR 30-59 ml/min Code(s): N18.3 - CHRONIC KIDNEY DISEASE, STAGE 3 (MODERATE) Status: Chronic (8) DM type 2 (diabetes mellitus, type 2) Status: Chronic Qualifiers: Diabetes mellitus complication status: with kidney complications Diabetes mellitus complication detail: with chronic kidney disease Diabetes mellitus care home insulin use: 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 marine 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 Chronic kidney disease stage: stage 3 (moderate) Qualified Code(s): E11.22 - Type 2 diabetes mellitus with diabetic chronic kidney disease; N18.3 - Chronic kidney disease, stage 3 ( moderate) (9) Obesity Code(s): E66.9 - OBESITY, UNSPECIFIED Status: Chronic Qualifiers: Obesity type: unspecified obesity type Comment: BMI of 41 (10) Osteoarthritis Code(s): M19.90 - UNSPECIFIED OSTEOARTHRITIS, UNSPECIFIED SITE Status: Chronic Qualifiers: Osteoarthritis location: shoulder Osteoarthritis type: unspecified Laterality: bilateral Qualified Code(s): M19.011 - Primary osteoarthritis, right shoulder; M19.012 - Primary osteoarthritis, left shoulder - Plan cont current plan of care, 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 * symptomatic treatment. Review of Systems - Review of Systems Eyes: negative: Pain, Vision Change, Conjunctivae Inflammation, Eyelid Inflammation, Redness, Other ENT: negative: Ear Pain, Ear Discharge, Nose Pain, Nose Discharge, Nose Congestion, Mouth Pain, Mouth Swelling, Throat Pain, Throat Swelling, Other Respiratory: negative: Cough, Dry, Shortness of Breath, Hemoptysis, SOB with Excertion, Pleuritic Pain, Sputum, Wheezing Cardiovascular: negative: Chest Pain, Palpitations, Orthopnea, Paroxysmal Noc. Dyspnea, Edema, Light Headedness, Other Gastrointestinal: negative: Nausea, Vomiting, Abdominal Pain, Diarrhea, Constipation, Melena, Hematochezia, Other Genitourinary: negative: Dysuria, Frequency, Incontinence, Hematuria, Retention , Other Musculoskeletal: Shoulder Pain, Arm Pain, Back Pain. negative: Neck Pain, Hand Pain, Leg Pain, Foot Pain, Other - Medications/Allergies Allergies/Adverse Reactions: Allergies Allergy/AdvReac Type Severity Reaction Status Date / Time morphine Allergy Verified 12/30/16 14:50 Penicillins Allergy Verified 12/30/16 14:50 Medications: Current Medications Acetaminophen (Tylenol) 650 mg PO Q6H PRN PRN Reason: Fever > 101 Last Admin: 03/26/17 23:55 Dose: 650 mg Hydrocodone Bitart/Acetaminophen ([place] 10/325) 1 tab PO Q8H PRN PRN Reason: Pain (4-10) Last Admin: 03/26/17 08:36 Dose: 1 tab Bisacodyl (Dulcolax) 10 mg [place] Q12H PRN PRN Reason: Constipation Clonidine HCl (Catapres) 0.2 mg PO [facility] Last Admin: 03/26/17 22:39 Dose: 0.2 mg Dextrose/Water (Dextrose 50%) 25 gm SLOW IVP PRN PRN PRN Reason: Hypoglycemia Diazepam (Valium) 5 mg PO Q6HR [facility] Last Admin: 03/27/17 06:33 Dose: 5 mg Furosemide (Lasix) 40 mg PO DAILY-[facility] Last Admin: 03/27/17 08:29 Dose: 40 mg Gabapentin (Neurontin) 300 mg PO TID [facility] Last Admin: 03/27/17 08:30 Dose: 300 mg Glipizide (Glucotrol) 5 mg PO DAILY-[facility] Last Admin: 03/27/17 08:29 Dose: 5 mg Glucagon (Glucagon) 1 mg IM PRN PRN PRN Reason: Hypoglycemia Hydralazine HCl (Apresoline) 50 mg PO TID [facility] Last Admin: 03/27/17 08:31 Dose: 50 mg Sodium Chloride (Normal Saline 0.9%) 1,000 mls @ 100 mls/hr IV .Q10H [facility] Last Admin: 03/27/17 05:46 Dose: Not Given Dextrose/Water (D5w) 1,000 mls @ 0 mls/hr IV .Q0M PRN; As Directed PRN Reason: Hypoglycemia Vancomycin HCl 1.5 gm/ Sodium (Chloride) 300 mls @ 200 mls/hr IVPB 0900 [facility] Last Admin: 03/27/17 08:32 Dose: 300 mls Ceftriaxone Sodium 2 gm/ (Sodium Chloride) 100 mls @ 200 mls/hr IVPB Q24HR [facility] Last Admin: 03/26/17 17:42 Dose: 100 mls Insulin Human Lispro (Humalog) 0 units SC .MODERATE SLIDING SC PRN PRN Reason: Moderate Correctional Scale Last Admin: 03/26/17 23:55 Dose: 4 unit Iron/Minerals/Multivitamins (Theragran M) 1 tab PO DAILY [facility] Last Admin: 03/27/17 08:32 Dose: 1 tab Labetalol HCl (Normodyne) 300 mg PO BID [facility] Last Admin: 03/27/17 08:31 Dose: 300 mg Magnesium Hydroxide (Milk Of Magnesium) 30 ml PO Q12H PRN PRN Reason: Constipation Ondansetron HCl (Zofran) 4 mg IVP Q6H PRN PRN Reason: Nausea/Vomiting Last Admin: 03/22/17 23:55 Dose: 4 mg Sodium Chloride (Flush - Normal Saline) 10 ml IVF PRN PRN PRN Reason: Saline Flush Tizanidine HCl (Zanaflex) 4 mg PO Q6H PRN PRN Reason: Muscle Spasm Last Admin: 03/26/17 22:38 Dose: 4 mg Tramadol HCl (Ultram) 50 mg PO Q6H PRN PRN Reason: Pain 1-5 Tramadol HCl (Ultram) 100 mg PO Q6H PRN PRN Reason: Pain 6-10 Last Admin: 03/26/17 14:53 Dose: 100 mg
[2017-03-27] MEDS: HumaLOG 300 UNITS/3 ML VIAL SC PRN (13:31)
[2017-03-27] MEDS: HYDROcodone/Acetaminophen 10/325 mg Tablet PO PRN (15:29)
[2017-03-27] MEDS: cefTRIAXone\\ROCEPHIN 2 GM in Sodium Chloride 0.9% 100 ML IVPB SCH (15:31)
[2017-03-27] MEDS: tiZANidine HCl 4 MG TAB PO PRN (20:31)
[2017-03-28] MEDS: Diazepam 5 MG TAB PO SCH ×2 (05:55→11:07)
--- NOTE | 2017-03-28 07:13 | PRG ---
DATE OF SERVICE: 03/28/2017 I saw Ms. Vasques in her hospital room this morning. Cultures are still negative. She sat at the bedside yesterday, but did not stand with assistance. Ultrasound of the lower extremities was negat farrukh for DVT. This morning, her examination is stable. She has antigravity strength and strength against resistan ce in all muscle groups tested in the lower extremities. She had sensation down to the toes, althou gh the farther it gets the more there is a decrease in sensation consistent with a length dependent, peripheral neuropathy. My plan for Ms. Vasques is to be more aggressive with her physical therapy. If she is not, will ne ed to go to a swing bed or assisted after this hospitalization.
--- NOTE | 2017-03-28 08:04 | PRG ---
DATE OF SERVICE: 03/28/2017 Ms. Vasques is a 71-year-old female who I saw in her room this morning. She continues to have nega tive cultures. Yesterday she was able to sit up at her bedside, but she was not able to ambulate wi physical therapy. This morning, her examination has been stable. There are no new neurologic de ficits on exam. The sensation in her legs is decreased and the pain is starting to resolve. We enc ouraged Ms. Vasques to be aggressive with physical therapy and have her walk around as much as poss ible today. She will need a swing bed or admission to senior living after this hospitalization to he lp some recovery. Yesterday she had bilateral ultrasound venous Doppler of her legs that showed no deep vein thrombosis. We will await disposition plans from case management as we anticipate her dis charge in the near future. If there are any further questions, please feel free to contact Neurosurgery.
[2017-03-28] MEDS: Furosemide 40 MG TAB PO SCH (08:24)
[2017-03-28] MEDS: Gabapentin 300 MG CAP PO SCH ×2 (08:24→15:37)
[2017-03-28] MEDS: Labetalol HCl 100 MG TAB PO SCH (08:25)
[2017-03-28] MEDS: Vancomycin HCl 1.5 GM in Sodium Chloride 0.9% 250 ML 300 ML IVPB SCH (08:25)
[2017-03-28] MEDS: Multivitamin W/ Minerals 1 TAB PO SCH (08:32)
[2017-03-28] MEDS: glipiZIDE 5 MG TAB PO SCH (08:33)
[2017-03-28] MEDS: Sodium Chloride 0.9% 1,000 ML IV SCH (08:34)
[2017-03-28 08:39] LABS: Vancomycin, Trough 19.7 ug/mL
[2017-03-28] MEDS: HYDROcodone/Acetaminophen 10/325 mg Tablet PO PRN (09:30)
--- NOTE | 2017-03-28 10:05 | PDOC.PN ---
- Subjective Encounter Start Date: 03/28/17 Encounter Start Time: 08:10 Patient seen and examined. No new complaints. No overnight events, had fever last night - Objective MAR Reviewed: Yes Vital Signs & Weight: Vital Signs (12 hours) Temp Pulse Resp BP BP Pulse Ox 03/28/17 08:32 93 146/74 H 03/28/17 08:25 93 146/74 H 03/28/17 04:00 99.2 F 92 16 130/69 97 03/28/17 00:00 100.3 F H 89 18 125/68 96 Weight Admit Weight 240 lb 4.862 oz Weight 240 lb 4.862 oz I&O: 03/27/17 03/28/17 03/29/17 06:59 06:59 06:59 Intake Total 1260 4140 Output Total 30 30 Balance 1230 4110 Result Diagrams: 03/25/17 04:55 03/25/17 04:55 Additional Labs: Accuchecks 03/28/17 03/27/17 03/27/17 05:33 20:35 16:47 POC Glucose 111 H 201 H 129 H 03/27/17 11:26 POC Glucose 161 H Phys Exam - Physical Examination Constitutional: NAD HEENT: PERRLA, moist MMs, sclera anicteric Neck: no JVD, supple Respiratory: no wheezing, no rales, no rhonchi Cardiovascular: RRR, no significant murmur, no rub Gastrointestinal: soft, non-tender, no distention, positive bowel sounds Musculoskeletal: no edema, pulses present Neurological: moves all 4 limbs Psychiatric: normal affect Skin: no rash, normal turgor Dx/Plan (1) Discitis of lumbar region Code(s): M46.46 - DISCITIS, UNSPECIFIED, LUMBAR REGION Status: Acute (2) Epidural abscess Code(s): G06.2 - EXTRADURAL AND SUBDURAL ABSCESS, UNSPECIFIED Status: Acute Comment: s/p evacuation (3) Osteomyelitis Code(s): M86.9 - OSTEOMYELITIS, UNSPECIFIED Status: Acute Qualifiers: Osteomyelitis type: unspecified type Comment: of L3-4, L4-5, s/p decompressive laminectomy 03/23/2017 (4) Chronic back pain Code(s): M54.9 - DORSALGIA, UNSPECIFIED; G89.29 - OTHER CHRONIC PAIN Status: Acute Qualifiers: Back pain location: low back pain Back pain laterality: midline Sciatica presence: without sciatica Qualified Code(s): M54.5 - Low back pain; G89.29 - Other chronic pain (5) UTI (urinary tract infection) Status: Acute Qualifiers: Urinary tract infection type: acute cystitis Hematuria presence: without hematuria Qualified Code(s): N30.00 - Acute cystitis without hematuria (6) Anemia Code(s): D64.9 - ANEMIA, UNSPECIFIED Status: Chronic Qualifiers: Anemia type: unspecified type Qualified Code(s): D64.9 - Anemia, unspecified (7) CKD (chronic kidney disease) stage 3, GFR 30-59 ml/min Code(s): N18.3 - CHRONIC KIDNEY DISEASE, STAGE 3 (MODERATE) Status: Chronic (8) DM type 2 (diabetes mellitus, type 2) Status: Chronic Qualifiers: Diabetes mellitus complication status: with kidney complications Diabetes mellitus complication detail: with chronic kidney disease Diabetes mellitus mcfp insulin use: without mcfp use Chronic kidney disease stage: stage 3 (moderate) Qualified Code(s): E11.22 - Type 2 diabetes mellitus with diabetic chronic kidney disease; N18.3 - Chronic kidney disease, stage 3 ( moderate) (9) Obesity Code(s): E66.9 - OBESITY, UNSPECIFIED Status: Chronic Qualifiers: Obesity type: unspecified obesity type Comment: BMI of 41 (10) Osteoarthritis Code(s): M19.90 - UNSPECIFIED OSTEOARTHRITIS, UNSPECIFIED SITE Status: Chronic Qualifiers: Osteoarthritis location: shoulder Osteoarthritis type: unspecified Laterality: bilateral Qualified Code(s): M19.011 - Primary osteoarthritis, right shoulder; M19.012 - Primary osteoarthritis, left shoulder - Plan cont current plan of 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 negative: Chills, Sweats, Malaise, Other Respiratory: negative: Cough, Dry, Shortness of Breath, Hemoptysis, SOB with Excertion, Pleuritic Pain, Sputum, Wheezing Cardiovascular: negative: Chest Pain, Palpitations, Orthopnea, Paroxysmal Noc. Dyspnea, Edema, Light Headedness, Other Gastrointestinal: negative: Nausea, Vomiting, Abdominal Pain, Diarrhea, Constipation, Melena, Hematochezia, Other Genitourinary: negative: Dysuria, Frequency, Incontinence, Hematuria, Retention , Other Musculoskeletal: negative: Neck Pain, Shoulder Pain, Arm Pain, Back Pain, Hand Pain, Leg Pain, Foot Pain, Other - Medications/Allergies Allergies/Adverse Reactions: Allergies Allergy/AdvReac Type Severity Reaction Status Date / Time morphine Allergy Verified 12/30/16 14:50 Penicillins Allergy Verified 12/30/16 14:50 Medications: Current Medications Acetaminophen (Tylenol) 650 mg PO Q6H PRN PRN Reason: Fever > 101 Last Admin: 03/26/17 23:55 Dose: 650 mg Hydrocodone Bitart/Acetaminophen ([place] 10/325) 1 tab PO Q8H PRN PRN Reason: Pain (4-10) Last Admin: 03/28/17 09:30 Dose: 1 tab Bisacodyl (Dulcolax) 10 mg LA Q12H PRN PRN Reason: Constipation Clonidine HCl (Catapres) 0.2 mg PO [facility] Last Admin: 03/27/17 20:31 Dose: 0.2 mg Dextrose/Water (Dextrose 50%) 25 gm SLOW IVP PRN PRN PRN Reason: Hypoglycemia Diazepam (Valium) 5 mg PO Q6HR [facility] Last Admin: 03/28/17 05:55 Dose: 5 mg Furosemide (Lasix) 40 mg PO DAILY-[facility] Last Admin: 03/28/17 08:24 Dose: 40 mg Gabapentin (Neurontin) 300 mg PO TID [facility] Last Admin: 03/28/17 08:24 Dose: 300 mg Glipizide (Glucotrol) 5 mg PO DAILY-[facility] Last Admin: 03/28/17 08:33 Dose: 5 mg Glucagon (Glucagon) 1 mg IM PRN PRN PRN Reason: Hypoglycemia Hydralazine HCl (Apresoline) 50 mg PO TID [facility] Last Admin: 03/28/17 08:32 Dose: 50 mg Sodium Chloride (Normal Saline 0.9%) 1,000 mls @ 100 mls/hr IV .Q10H [facility] Last Admin: 03/28/17 08:34 Dose: Not Given Dextrose/Water (D5w) 1,000 mls @ 0 mls/hr IV .Q0M PRN; As Directed PRN Reason: Hypoglycemia Vancomycin HCl 1.5 gm/ Sodium (Chloride) 300 mls @ 200 mls/hr IVPB 0900 [facility] Last Admin: 03/28/17 08:25 Dose: 300 mls Ceftriaxone Sodium 2 gm/ (Sodium Chloride) 100 mls @ 200 mls/hr IVPB Q24HR [facility] Last Admin: 03/27/17 15:31 Dose: 100 mls Insulin Human Lispro (Humalog) 0 units SC .MODERATE SLIDING SC PRN PRN Reason: Moderate Correctional Scale Last Admin: 03/27/17 13:31 Dose: 2 unit Iron/Minerals/Multivitamins (Theragran M) 1 tab PO DAILY [facility] Last Admin: 03/28/17 08:32 Dose: 1 tab Labetalol HCl (Normodyne) 300 mg PO BID [facility] Last Admin: 03/28/17 08:25 Dose: 300 mg Magnesium Hydroxide (Milk Of Magnesium) 30 ml PO Q12H PRN PRN Reason: Constipation Ondansetron HCl (Zofran) 4 mg IVP Q6H PRN PRN Reason: Nausea/Vomiting Last Admin: 03/22/17 23:55 Dose: 4 mg Sodium Chloride (Flush - Normal Saline) 10 ml IVF PRN PRN PRN Reason: Saline Flush Tizanidine HCl (Zanaflex) 4 mg PO Q6H PRN PRN Reason: Muscle Spasm Last Admin: 03/27/17 20:31 Dose: 4 mg Tramadol HCl (Ultram) 50 mg PO Q6H PRN PRN Reason: Pain 1-5 Tramadol HCl (Ultram) 100 mg PO Q6H PRN PRN Reason: Pain 6-10 Last Admin: 03/26/17 14:53 Dose: 100 mg
--- NOTE | 2017-03-28 14:38 | DIS ---
DATE OF ADMISSION: 03/22/2017 DATE OF DISCHARGE: 03/28/2017 PRIMARY CARE PHYSICIAN: Dr. Flores. DISCHARGE DISPOSITION: long-term unit. PRIMARY DISCHARGE DIAGNOSES: Diskitis of lumbar region, epidural abscess, osteomyelitis of spine an d urinary tract infection. SECONDARY DISCHARGE DIAGNOSES: Chronic low back pain, anemia of chronic disease, chronic kidney dis ease stage 3, diabetes type 2, obesity with BMI of 41, osteoarthritis. PRIMARY PROCEDURE/OPERATION: Dr. Guzman did decompressive laminectomy, medial fasciectomy, sergio inotomy, removal of ventral epidural abscess and PICC line. RADIOLOGICAL INVESTIGATION: Lumbar spine MRI, ultrasound of bilateral lower extremity, forearm x-ra y. SIGNIFICANT LABS: Hemoglobin 7.9. INR 1.2. Creatinine 1.26. Electrolytes normal. LFTs normal. ESR and CRP elevated. Urine culture grew Klebsiella. Blood culture was negative. DISCHARGE MEDICATIONS: Biotin 10,000 mcg p.o. daily, diazepam 5 mg p.o. q.6 hourly p.r.n., Lasix 40 mg p.o. at bedtime, gabapentin 300 mg p.o. t.i.d., [place] 1 tablet q.6. hourly p.r.n., labetalol 300 mg p.o. b.i.d., multivitamin 1 tablet p.o. daily, Folgard one tablet p.o. daily, Zantac 150 mg p.o. p.r.n., clonidine 0.2 mg p.o. at bedtime, hydralazine 50 mg p.o. t.i.d., Rocephin and vancomycin as per Dr. Schulte. TEST RESULTS PENDING ON DISCHARGE: None. ALLERGIES: MORPHINE, PENICILLIN. DISCHARGE PLAN: Post hospital, the patient will follow up with Dr. Guzman, Dr. Schulte and primary care physician. HOSPITAL COURSE: A 71-year-old female with above-mentioned medical problem, who had MRI done as an outpatient basis on 03/22/2017 and patient was found with diskitis and osteomyelitis at L3-L4, L4-L5 level, left psoas abscess and septic arthritis of L3-L4, L4-L5 facet joints as well as myositis of posterior musculature. This patient was admitted under Dr. Guzman and Dr. Guzman did foramine ctomy, facetectomy, laminectomy, and removal of ventral epidural abscess. Subsequently, cultures re mained negative. Dr. Schulte was following while in hospital and he recommended to continue IV antibi otic therapy. Based on last Dr. Schulte' note, patient was given instruction about to continue Rocephin and vancomyc in for a protracted period of time. At this point, the patient has PICC line placed. The patient h as placement for IV antibiotic therapy and we have a medical doctor signed off on this particular pa tient. Her medical problems remained stable while in hospital. While in hospital, we continued her home medication. On discharge, we are continuing similar home medication as well. The patient is seen and examined at bedside today. Please see my progress note from today for furth er details.
[2017-03-28] MEDS: cefTRIAXone\\ROCEPHIN 2 GM in Sodium Chloride 0.9% 100 ML IVPB SCH (15:42)
[2017-03-28 15:43] VITALS: BP 163/83
[2017-03-28] MEDS ORDERED: Heparin 1,000 UNITS/ML VIAL ONE (16:08)
--- NOTE | 2017-03-28 16:14 | SPC ---
LEFT UPPER EXTREMITY PICC LINE ULTRASOUND AND FLUOROSCOPIC GUIDANCE: Fluoroscopy time: 0 minutes Dose: 1 mGy*cm2 PROCEDURE: After informed consent had been obtained, the patient was placed on the interventional suite table i n a supine position. The left arm was prepped and draped in a standard sterile fashion. Topical an esthesia was achieved utilizing 1% Lidocaine and sodium bicarbonate. Under real-time sonography, th e basilic vein of the left upper extremity was accessed with a small caliber needle with venous flas h present at the needle hub. A guidewire was then advanced in to the needle, and under real-time fl uoroscopy, the guidewire was advanced to the level of the inferior vena cava to confirm appropriate venous placement. A small skin incision was made and the needle was removed. Over the guidewire, a single lumen PICC line was cut to 41 cm. The PICC line was advanced under real-time fluoroscopy ov er the guidewire to the level of the cavoatrial junction. The guidewire and peelaway sheath were th en removed. PICC line flushed and aspirated appropriately and was secured to the left upper extremi ty. There were no procedural complications. IMPRESSION: Technically successful ultrasound and fluoroscopic-guided left PICC line placement, as above. POS: [facility]
[2017-03-28 16:33] VITALS: TEMP 98.2
== END 2017-03-28 17:00 | DRG 29 ==
LOC: ERS 19:37 → SURG B 21:30
PROVIDERS: ADMIT Neurological Surgery; ATTEND Neurological Surgery
PROC: 01NB0ZZ Release Lumbar Nerve, Open Approach (ICD-10-PCS; principal; 2017-03-23)
PROC: 0SB20ZZ Excision of Lumbar Vertebral Disc, Open Approach (ICD-10-PCS; 2017-03-23)
PROC: 02HV33Z Insertion of Infusion Device into Superior Vena Cava, Percutaneous Approach (ICD-10-PCS; 2017-03-28)
DX: G06.1 Intraspinal abscess and granuloma (principal); M46.26 Osteomyelitis of vertebra, lumbar region; E11.22 Type 2 diabetes mellitus with diabetic chronic kidney disease; Z68.41 Body mass index [BMI] 40.0-44.9, adult; N18.3 Chronic kidney disease, stage 3 (moderate); N30.00 Acute cystitis without hematuria; M46.46 Discitis, unspecified, lumbar region; M48.07 Spinal stenosis, lumbosacral region; D63.1 Anemia in chronic kidney disease; I12.9 Hypertensive chronic kidney disease with stage 1 through stage 4 chronic kidney disease, or unspecified chronic kidney disease; Z88.6 Allergy status to analgesic agent; Z88.0 Allergy status to penicillin; M46.56 Other infective spondylopathies, lumbar region; Z85.41 Personal history of malignant neoplasm of cervix uteri; M19.012 Primary osteoarthritis, left shoulder; M19.011 Primary osteoarthritis, right shoulder; E66.01 Morbid (severe) obesity due to excess calories
CPT/HCPCS: 36415; 36416; 36569; 72148; 72149; 76001; 80053; 80202; 83605; 85025; 85610; 85652; 85730; 86140; 86850; 86900; 86901; 87040; 87070; 87077; 87086; 87102; 87186; 87205; 87206; 93970; 96365; A4216; C1751; G8978-GP-CL; G8979-GP-CJ; G8987-GO-CM; G8988-GO-CK; J0131; J0360; J0670; J0696; J1170; J1644; J1956; J2405; J2704; J2765; J3010; J3370; J3490; J7050

== ENCOUNTER 2018-01-07 15:37 | Observation (INO) | payer MEDICARE, BC ==
[2018-01-07] MEDS ORDERED: Fentanyl 100 MCG/2 ML VIAL ONE ×2 (17:05→19:45)
--- NOTE | 2018-01-07 18:03 | CT ---
CT RIGHT WRIST WITHOUT CONTRAST: HISTORY: Wrist fracture. Fall. COMPARISON: Right wrist radiograph from 01/07/2018. TECHNIQUE: Multiple contiguous axial images were obtained in a CT of the right wrist without contrast. Sagittal and coronal reformats were performed. FINDINGS: There were three small avulsion fractures off the dorsal cortices of the scaphoid, triquetral, and rodriguez mate bones. Surrounding soft tissue swelling is seen. No dislocation is present. IMPRESSION: Small avulsion fractures off the dorsal aspect of the carpal bones. POS: [facility]
[2018-01-07 18:23] LABS: #Lymphocytes 2.1 thou/uL (1.20-3.40); #Monocytes 0.9 thou/uL (0.11-0.59); #Neutrophils 8.3 thou/uL (1.40-6.50); %Basophils 0.4 % (0.0-1.0); %Eosinophils 0.3 % (0.0-10.0); %Lymphocytes 18.7 % (21.0-51.0); %Neutrophils 72.6 % (42.0-75.0); Hemoglobin 9.2 g/dL (12.0-16.0); Mean Corpuscular HGB CONC 31.8 g/dL (32.0-36.0); Mean Corpuscular Volume 97.5 fL (78.0-98.0); Mean Platelet Volume 6.5 fL (7.4-10.4); Platelet Count 277 thou/uL (130-400); RBC Distribution Width 15.4 % (11.5-14.5); Red Blood Cell (RBC) Count 2.95 mill/uL (4.20-5.40); White Blood Cell (WBC) Count 11.4 thou/uL (4.8-10.8)
[2018-01-07] MEDS ORDERED: Colchicine 0.6 MG TAB PO SCH (19:30)
[2018-01-07] MEDS ORDERED: Acetaminophen 500 MG TAB ONE (21:48)
[2018-01-07] MEDS ORDERED: cloNIDine 0.1 MG TAB ONE (22:06)
[2018-01-07] MEDS ORDERED: Ondansetron HCl/PF 4 MG/2 ML Vial IVP PRN (23:24)
[2018-01-07] MEDS ORDERED: Acetaminophen 325 MG TAB PO PRN (23:24)
[2018-01-07] MEDS ORDERED: Ondansetron ODT 4 MG TAB SL PRN (23:24)
[2018-01-07] MEDS ORDERED: cefTRIAXone\\ROCEPHIN 1 GM in Sodium Chloride 0.9% 100 ML IVPB SCH (23:59)
[2018-01-08 00:41] VITALS: BMI 39.2
[2018-01-08] MEDS ORDERED: Vancomycin HCl 1 GM in Premix Bag 1 BAG IVPB SCH ×2 (01:00→02:00)
[2018-01-08] MEDS: Fentanyl 100 MCG/2 ML VIAL SLOW IVP PRN ×2 (03:18→04:48)
[2018-01-08] MEDS: hydrALAZINE 25 MG TAB PO SCH ×3 (06:40→21:03)
[2018-01-08] MEDS ORDERED: Colchicine 0.6 MG TAB PO SCH ×3 (08:00→21:00)
[2018-01-08] MEDS ORDERED: Bisacodyl 5 MG TAB PO PRN (09:13)
[2018-01-08] MEDS ORDERED: hydrOXYzine Pamoate 25 mg Capsule PO PRN (09:13)
[2018-01-08] MEDS ORDERED: Calcium Carbonate 500 MG ChewTAB PO PRN (09:13)
[2018-01-08] MEDS ORDERED: Acetaminophen 325 MG TAB PO PRN (09:13)
[2018-01-08] MEDS ORDERED: Senokot 8.6 MG TAB PO PRN (09:13)
[2018-01-08] MEDS ORDERED: cloNIDine 0.1 MG TAB PO PRN (09:13)
[2018-01-08] MEDS ORDERED: Loratadine 10 MG TAB PO PRN (09:13)
[2018-01-08] MEDS ORDERED: Diabetic Tussin 200 MG/10 ML UDCUP PO PRN (09:13)
[2018-01-08] MEDS ORDERED: Mag-Al 1200 mg/1200 mg/30 ML UDCUP PO PRN (09:13)
[2018-01-08] MEDS ORDERED: hydrALAZINE 20 MG/ML VIAL SLOW IVP PRN (09:13)
[2018-01-08] MEDS ORDERED: Benzonatate 100 MG CAP PO PRN (09:13)
[2018-01-08] MEDS ORDERED: Ondansetron HCl/PF 4 MG/2 ML Vial IVP PRN (09:13)
[2018-01-08] MEDS: Aspirin 81 mg Enteric Coated Tablet PO SCH (09:15)
[2018-01-08] MEDS: Labetalol 100 MG TAB PO SCH ×3 (09:15→21:04)
[2018-01-08] MEDS ORDERED: Dextrose 5% in Water 1,000 ML IV PRN (09:15)
[2018-01-08] MEDS ORDERED: Dextrose 50% Abboject 50 ML SYRINGE SLOW IVP PRN (09:15)
[2018-01-08] MEDS ORDERED: HumaLOG 300 UNITS/3 ML VIAL SC PRN ×2 (09:15)
[2018-01-08] MEDS: Glimepiride 2 MG TAB PO SCH (09:16)
[2018-01-08] MEDS: Gabapentin 400 MG CAP PO SCH ×3 (09:16→21:03)
[2018-01-08] MEDS: cloNIDine 0.3 MG TAB PO SCH ×3 (09:16→21:02)
[2018-01-08] MEDS ORDERED: HYDROcodone/Acetaminophen 10/325 mg Tablet PO SCH (09:45)
[2018-01-08] MEDS: Sodium Chloride 0.9% 1,000 ML IV SCH ×2 (10:10→21:05)
[2018-01-08] MEDS ORDERED: VANCOMYCIN IVPB PRN (10:30)
[2018-01-08] MEDS ORDERED: Vancomycin HCl 750 MG in Sodium Chloride 0.9% 250 ML 250 ML IVPB SCH (10:45)
--- NOTE | 2018-01-08 11:34 | CON ---
DATE OF CONSULTATION: 01/08/2018 REQUESTING PHYSICIAN: Dr. Esteban. CONSULTING PHYSICIAN: Dr. Boom Louis. REASON FOR CONSULTATION: Right wrist pain and swelling. HISTORY OF PRESENT ILLNESS: This is a 72-year-old female. Patient presented to the [place] ER with complaints of a 1-2-day history of right wrist pain and swelling. X-rays were obtained. The patien t was then transferred to our facility for higher level of care. Currently, at bedside, patient repo rts that she is right-hand dominant. She has had pain over the last 2 days. She is unsure whether s he has had fever at home. She does report a history of similar in the past, one time, at which time she had back surgery performed. She states she had right wrist pain and rehabilitation that spontane ously resolved. She denies a history of gout. She denies a history of septic arthritis. She states that she has never had a needle inserted into this wrist. She has not recently fallen, but she does state that her right wrist pain radiates throughout her entire arm up to her elbow and her shoulder. She denies any other medical illness recently including a cold, flu, nausea, or vomiting. She has been placed in a sling at this time. PAST MEDICAL HISTORY: Significant for hypertension. This is managed by her primary care physician, Dr. Villafuerte. PAST SURGICAL HISTORY: Significant for bilateral hip replacements, uterine fibroid surgery, tonsille ctomy, bilateral cataract surgery, and laminectomy and foraminotomy by Dr. Guzman. ALLERGIES: MORPHINE and PENICILLIN. FAMILY HISTORY: Reviewed and noncontributory. SOCIAL HISTORY: Patient denies alcohol, tobacco, or IV drug use. REVIEW OF SYSTEMS: Ten-point review of systems conducted, and otherwise, negative except for as stat ed above. PHYSICAL EXAMINATION: Includes, VITAL SIGNS: Blood pressure 163/64, pulse of 93, temperature of 98.5, respiratory rate of 16. Of no te, temperature at time of transfer to our facility was 101.3. GENERAL: The patient is awake, alert, and oriented x3. She is in no acute distress. She is pleasan t and cooperative with exam findings today. No family is currently present at bedside. HEENT: Head is normocephalic, atraumatic. NECK: Supple. Trachea is midline. Breathing is nonlabored. EXTREMITIES: Evaluation of the right upper extremity shows a sling intact. This was removed for exa mination. There is soft tissue swelling noted at the wrist and the forearm as well as extending into the hand and the digits. There are no skin lesions noted. No significant erythema noted. The esteban ent is tender to palpation, most specifically along the wrist and the forearm including the hand. Th e elbow is nontender. The shoulder is nontender. Active range of motion assessed, but this was diff icult secondary to pain. Patient states that she cannot flex and extend her wrist. She is not coope rative with flexion and extension of the elbow or the shoulder either at this time. Passive range of motion attempted with the elbow. The patient incurs pain with this motion. Range of motion not ass essed passively in the wrist. Passive and active range of motion intact in the digits. Sensation in tact distally. Capillary refill 2 seconds. RADIOGRAPHIC FINDINGS: Including x-ray views of the wrist show possible avulsion fractures in the ca rpal bones. This was further evaluated with a CT scan, which was also consistent with avulsion fract ures in the dorsum of the carpal bones. LABORATORY FINDINGS: Including CBC show a white blood cell count of 11.4. Uric acid level was eleva jessica at 9.7, and C-reactive protein is also elevated at 23.66. ASSESSMENT: Right wrist pain and swelling without trauma or injury. PLAN: At this time, patient does have pain and swelling without injury. I am not sure this is consi stent with avulsion fractures as seen on x-rays. This appears to be most likely related to a gouty a rthritis attack. Patient does have an elevated uric acid level in an elevated CRP. Plan is for init iating uric acid medications for the treatment of gout. We would like to hold off on arthrocentesis of the wrist at this time and see if she improves with gouty arthritis medicines. If she fails to im prove with this, we will consider an arthrocentesis looking for a septic joint. Plan of care discuss ed with Dr. Louis. We will continue to follow the patient. Thank you for this consultation. Cassi Sneed, physician collections assistant, dictating for Boom Louis M.D.
[2018-01-08] MEDS: HYDROcodone/Acetaminophen 7.5/325 mg Tablet PO PRN ×2 (14:52→21:06)
--- NOTE | 2018-01-08 15:09 | HP ---
DATE OF ADMISSION: 01/08/2018 PRIMARY CARE PHYSICIAN: Hilda Villafuerte M.D. CHIEF COMPLAINT: Right wrist pain, swelling of acute onset. HISTORY OF PRESENT ILLNESS: Ms. Vasqeus is a 72-year-old female with past medical history of hypert ension, diabetes mellitus, history of cervical cancer, history of diskitis last year, and neuropathy, who presented to the ER with sudden onset of pain in her right wrist. History is mainly obtained by the patient herself and electronic medical records have been reviewed. The patient was last admitte d to our facility in 04/2017, at which time she was diagnosed with angioedema due to CA inhibitors. Prior to that, she was admitted in 03/2017 and was diagnosed with osteomyelitis and diskitis in the lumbar spine. She presented to the emergency room in [place] yesterday with complaints of pain in her right wrist of sudden onset duration. She reported that this has been going on for the last 5 days. She denies any trauma. She denies any similar symptoms. She denies any other joint involvement. She has repor jessica that the wrist has been hurting so bad and then it started to swell up and the swelling extended upwards to her extremities. She denies any fever or chills at home. She denies any injuries at all. Upon presentation to the [place] Emergency Room, her blood pressure was in the 182/68 with a pulse o f 87. She underwent ultrasound of her right upper arm because it was found somewhat swollen, which w as negative for DVT. She then underwent a wrist x-ray of her right wrist which showed fractures in t he wrist bones. She then underwent a right upper extremity CT scan which showed avulsion fractures o f the dorsum of scaphoid triquetral and hamate bones. She was also found to have elevated uric acid level, so was given colchicine and was transferred to our facility for further care. Orthopedics was consulted by our emergency room physician and she is now being admitted for further workup and rule out septic arthritis. She is being started on the treatment for gouty arthritis until the septic art hritis was also ruled out. She has gotten IV antibiotics in the emergency room, namely vancomycin an d Rocephin. PAST MEDICAL HISTORY: 1. Osteomyelitis and diskitis of the lumbar spine in 03/2017. 2. 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 3. Resistant hypertension. 4. Degenerative joint disease. 5. Morbid obesity. 6. Rotator cuff syndrome. 7. History of cervical cancer. 8. Deconditioning. PAST SURGICAL HISTORY: 1. Bilateral hip replacement. 2. Removal of uterine fibroids. 3. Tonsillectomy 4. Bilateral cataract surgery. 5. Decompression laminectomy by Dr. Guzman in March. ALLERGIES: MORPHINE and PENICILLIN, but she can tolerate hydrocodone and Rocephin. FAMILY HISTORY: No significant family history of gout. No premature coronary artery disease or stro ke running in her family. SOCIAL HISTORY: She is and lives with her daughter. No history of drug, tobacco or alcohol abuse. 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 CURRENT MEDICATIONS: As follows Lasix 40 mg Sunday, Sunday, Sunday; Amaryl 2 mg daily; aspirin 81 mg daily; labetalol 300 mg p.o. t.i.d.; gabapentin 400 mg p.o. t.i.d., hydralazine 100 mg p.o. t.i.d ., clonidine 0.3 mg t.i.d. REVIEW OF SYSTEMS: Twelve-point review of system is done. It is negative except for those mentioned in the history and physical. LABORATORY DATA: CBC shows WBCs 12.3 with 60% neutrophils, hemoglobin 9.2, platelet count of 277. S hugo chemistries show BUN of 20, creatinine of 1.33. Uric acid 9.7, AST 48. C-reactive protein 23. Her urinalysis shows proteinuria, positive nitrite, trace leukocyte esterase, wbc's and multiple amol teria. Chest x-ray by my review has no evidence of any infiltrate. There is mild pulmonary vascular congest ion. Wrist x-ray by my review as her H and P. Vascular ultrasound right upper extremity without any DVT. CT scan of the upper extremity showed avulsion fractures of the wrist bones as above. PHYSICAL EXAMINATION: VITAL SIGNS: Most recent vital signs, temperature 98.8, pulse of 85, respirations 16, saturating 96% on room air, blood pressure 164/79. GENERAL: No acute distress, awake, alert, oriented x3. HEENT: Mucous membrane is moist and pink. No oropharyngeal exudate or erythema. Head is normocepha lic, atraumatic. Pupils equal, reactive to light and accommodation. Extraocular movement intact. NECK: Supple without any lymphadenopathy, JVD or bruit. CHEST: Clear to auscultation without any wheezing, rales or rhonchi. CARDIAC: Rate and rhythm is regular without any murmur, rubs or gallops. ABDOMEN: Soft, obese, nontender, nondistended, positive bowel sounds. EXTREMITIES: Free of any cyanosis, clubbing, or edema in the bilateral lower extremities. Her right wrist is swollen involving the hand. Radial pulses are felt with difficulty as the patient withdraw s because of the pain on examination. No erythema noticed. There is no other joint tenderness, swel ling or erythema. Range of motion of the elbow because of the pain. Exam cannot be completed becaus e of the patient's arm is in a sling and she would not let me finish the examination because of the p ain. NEUROLOGIC: Nonfocal. PSYCHIATRIC: Normal affect. SKIN: Free of any rashes or bruises. I feel warm and dry to touch. IMPRESSION AND PLAN: 1. Right wrist pain, likely secondary to gouty acute attack. The patient will be continued on colch icine. We will give her one more dose today and resume 0.6 mg from tomorrow morning. Avoid glucocor ticoids at this time given the fact that we are trying to rule out septic arthritis and also because she is a diabetic. If no improvement occurs with 2-3 days treatment of colchicine, she might need ei ther intra-articular glucocorticoids or systemic steroids. We are also ruling out septic arthritis. Orthopedics has seen the patient. If there is no benefit from the treatment of acute gout, the esteban ent will undergo arthrocentesis. Meanwhile, she has been continued on IV antibiotics. 2. Acute gouty arthritis. We will continue colchicine as above. 3. Urinary tract infection. The patient has evidence of urinary tract infection. We will start her on levofloxacin and send urine for culture. 4. Suspicion of septic arthritis. We will continue empiric IV antibiotics. 5. Uncontrolled hypertension. We will restart her home medications and monitor closely. P.r.n. ant ihypertensives have already been added as well. 6. History of diskitis and osteomyelitis. 7. Diabetes mellitus. We will put her on insulin sliding scale with frequent Accu-Cheks. 8. Deep venous thrombosis and gastrointestinal prophylaxis. 9. Code status: FULL CODE. DISPOSITION: Ms. Vasques is currently being admitted on observation status for what seems like a go uty arthritis. If the workup is consistent with septic arthritis, she will be changed to inpatient s tatus. Further management will depend upon her clinical course.
[2018-01-08] MEDS: Famotidine 20 MG TAB PO SCH (21:03)
[2018-01-09] MEDS ORDERED: Vancomycin HCl 1.75 GM in Sodium Chloride 0.9% 500 ML IVPB SCH (03:00)
[2018-01-09 04:39] LABS: Anion Gap 12 mmol/L (10-20); BUN (Urea Nitrogen) 19 mg/dL (9.8-20.1); Calc. Creatinine Clearance 85 mL/min (70-130); Calcium 8.7 mg/dL (7.8-10.44); Carbon Dioxide 25 mmol/L (23-31); Chloride 107 mmol/L (98-107); Estimated GFR-MDRD 59; Glucose 111 mg/dL (80-115); Potassium 4.3 mmol/L (3.5-5.1); Sodium 140 mmol/L (136-145)
[2018-01-09] MEDS: HYDROcodone/Acetaminophen 7.5/325 mg Tablet PO PRN ×2 (05:23→09:58)
[2018-01-09 07:08] LABS: #Eosinphils 0.3 thou/uL (0.0-0.7); #Lymphocytes 1.5 thou/uL (1.20-3.40); #Monocytes 0.6 thou/uL (0.11-0.59); #Neutrophils 4.9 thou/uL (1.40-6.50); %Lymphocytes 20.2 % (21.0-51.0); %Monocytes 7.8 % (0.0-10.0); %Neutrophils 67.9 % (42.0-75.0); Hemoglobin 8.9 g/dL (12.0-16.0); Mean Corpuscular HGB CONC 32.3 g/dL (32.0-36.0); Mean Corpuscular Hemoglobin 31.1 pg (27.0-31.0); Mean Corpuscular Volume 96.5 fL (78.0-98.0); Mean Platelet Volume 6.2 fL (7.4-10.4); Platelet Count 314 thou/uL (130-400); RBC Distribution Width 15.4 % (11.5-14.5); Red Blood Cell (RBC) Count 2.85 mill/uL (4.20-5.40); White Blood Cell (WBC) Count 7.2 thou/uL (4.8-10.8)
[2018-01-09] MEDS: cloNIDine 0.3 MG TAB PO SCH ×2 (08:37→14:13)
[2018-01-09] MEDS: Aspirin 81 mg Enteric Coated Tablet PO SCH (08:38)
[2018-01-09] MEDS: hydrALAZINE 25 MG TAB PO SCH ×2 (08:38→14:10)
[2018-01-09] MEDS: Glimepiride 2 MG TAB PO SCH (08:38)
[2018-01-09] MEDS: Enoxaparin Sodium 40 MG/0.4 ML SYRINGE SC SCH ×2 (08:38→08:43)
[2018-01-09] MEDS: Gabapentin 400 MG CAP PO SCH ×2 (08:39→14:11)
[2018-01-09] MEDS: Labetalol 100 MG TAB PO SCH ×2 (08:39→14:13)
[2018-01-09] MEDS: Famotidine 20 MG TAB PO SCH (08:39)
[2018-01-09] MEDS ORDERED: Furosemide 40 MG TAB PO SCH (09:00)
[2018-01-09] MEDS ORDERED: Colchicine 0.6 MG TAB PO SCH (14:00)
[2018-01-09] MEDS: Sodium Chloride 0.9% 1,000 ML IV SCH (14:03)
[2018-01-09 16:40] VITALS: BP 162/74; TEMP 98.3
--- NOTE | 2018-01-10 00:49 | DIS ---
DATE OF ADMISSION: 01/07/2018 DATE OF DISCHARGE: 01/09/2018 CONDITION AT THE TIME OF DISCHARGE: Stable and improved. DISCHARGE DIAGNOSES: 1. Acute gouty arthritis of the left first metacarpophalangeal joint versus hand. 2. Fracture of the wrist bone on the left side. 3. Chronic kidney disease. 4. History of osteomyelitis and diskitis. 5. Hypertension. 6. Obesity. 7. History of cervical cancer. 8. Chronic deconditioning. 9. Urinary tract infection. DISCHARGE DISPOSITION: Home with home health. PRIMARY CARE PHYSICIAN: Hilda Villafuerte M.D. INHOUSE CONSULTATIONS: Orthopedics, Dr. Louis. PROCEDURES DONE IN THE HOSPITAL: 1. Vascular ultrasound of the left upper extremity, which shows no evidence of DVT. 2. Wrist x-ray which shows evidence of fracture of the small bones of the wrist. 3. Upper extremity CT scan of the left arm, this showed avulsion fractures of the dorsal aspect of t he carpal bones. DISCHARGE MEDICATIONS: Colchicine 0.6 mg p.o. daily, levofloxacin 250 mg p.o. daily. She is instruc jessica to hold the Lasix for the next few days until her acute attack is over. HISTORY OF PRESENT ILLNESS: Ms. Vasques is a 72-year-old female without any previous history of gou t, otherwise past medical history as outlined above: presented to the emergency room with 3-4 days co mplaint of acute onset of left arm, hand pain, and swelling now. It started in her hand and extended upwards to involve all of her arm with severe pain. She presented to the ER with these symptoms and was hemodynamically stable. She had mild leukocytosis with WBCs of 11.4. CRP was elevated at 23. Various imaging studies were done, which were negative for DVT and showed soft tissue swelling as wel l as fracture of the carpal bones. Orthopedics was consulted with possibility of septic joint and sh e was started on empiric antibiotics. Her urinalysis was consistent with possible UTI, so it was sen t for culture and she was admitted to medical floor. Please see admission history and physical for f urther details. HOSPITAL COURSE: The patient was found to have gouty arthritis by examination. Possibility of septi c arthritis was very low. Orthopedics did see the patient and they have no new recommendations for h er. She was treated with high dose of colchicine in the beginning with tapering dose of colchicine a t 0.6 mg daily with improvement in her symptoms. Home health was arranged for her and she was discha rged back home to follow up with her primary care physician. This patient will require starting of u fer acid lowering medications, after her acute attack is over. She was instructed to follow up with her primary care physician. She would need colchicine for at least 3 months or so, maybe 6 months or longer. Given her history of chronic kidney disease. She was seen and examined prior to discharge. Her physical examination this morning vital signs, tem perature 98.1, pulse of 77, respirations 20, saturating 97% on room air, blood pressure 155/73, no ac yoan distress, awake, alert, oriented x3. Hand swelling and pain. It was still about the same, but s he is eager to go home. Home health was arranged for her. LABORATORY EXAMINATION: Her urine culture was positive for E. coli, which was pansensitive. She was changed to oral levofloxacin and prescriptions were provided. She is instructed to follow up with h er primary care physician closely. Total time spent in the discharge 32 minutes.
== END 2018-01-09 16:07 | disposition home or self-care (01) ==
LOC: ERS 15:37 → T4-B 21:00
PROVIDERS: ADMIT Internal Medicine; ATTEND Internal Medicine
DX: M10.9 Gout, unspecified (principal); S62.101A Fracture of unspecified carpal bone, right wrist, initial encounter for closed fracture; I12.9 Hypertensive chronic kidney disease with stage 1 through stage 4 chronic kidney disease, or unspecified chronic kidney disease; E11.22 Type 2 diabetes mellitus with diabetic chronic kidney disease; E66.01 Morbid (severe) obesity due to excess calories; N39.0 Urinary tract infection, site not specified; N18.9 Chronic kidney disease, unspecified; Z88.0 Allergy status to penicillin; Z88.5 Allergy status to narcotic agent; Z79.82 Long term (current) use of aspirin; Z79.899 Other long term (current) drug therapy; Z68.39 Body mass index [BMI] 39.0-39.9, adult
CPT/HCPCS: 73200; 80048; 82010; 82962 ×3; 84550; 85025 ×2; 85652; 86140; 96361 ×2; 96365; 96366 ×2; 96367; 96376 ×2; 97110; 97139; 97530; 99285; G0378; G8978; G8979; G8987; G8988; 36415; 36416; 96374; A4216; J0696; J1650; J1956; J3010; J3370; J7050

== ENCOUNTER 2022-11-02 18:22 | Inpatient (IN) | payer MEDICARE, OTHER ==
[2022-11-02 23:02] LABS: #Eosinphils 0.2 thou/uL (0.0-0.7); #Monocytes 0.7 thou/uL (0.11-0.59); #Neutrophils 4.9 thou/uL (1.40-6.50); %Basophils 0.3 % (0.0-1.0); %Eosinophils 3.2 % (0.0-10.0); %Lymphocytes 17.7 % (21.0-51.0); %Monocytes 10.3 % (0.0-10.0); %Neutrophils 67.8 % (42.0-75.0); Hemoglobin 8.3 g/dL (12.0-16.0); Mean Corpuscular HGB CONC 30.6 g/dL (32.0-36.0); Mean Corpuscular Hemoglobin 30.3 pg (27.0-31.0); Mean Corpuscular Volume 98.9 fl (78.0-98.0); Mean Platelet Volume 8.9 fL (7.4-10.4); Platelet Count 221 10x3/uL (130-400); RBC Distribution Width 15.9 % (11.5-14.5); Red Blood Cell (RBC) Count 2.74 mill/uL (4.20-5.40); White Blood Cell (WBC) Count 7.2 10x3/uL (4.8-10.8)
[2022-11-02 23:30] LABS: ALT (SGPT) 10 U/L (8-55); AST (SGOT) 22 U/L (5-34); Albumin 3.2 g/dL (3.4-4.8); Alkaline Phosphatase 46 U/L (40-110); Anion Gap 15 mmol/L (10-20); BUN (Urea Nitrogen) 90 mg/dL (9.8-20.1); Bilirubin, Total 0.4 mg/dL (0.2-1.2); Calc. Creatinine Clearance 0 mL/min (70-130); Calcium 9.2 mg/dL (7.8-10.44); Carbon Dioxide 20 mmol/L (23-31); Chloride 105 mmol/L (98-107); Estimated GFR 12; Globulin 3.6 g/dL (2.4-3.5); Glucose 126 mg/dL (83-110); Potassium 4.4 mmol/L (3.5-5.1); Protein, Total 6.8 g/dL (5.8-8.1); Sodium 136 mmol/L (136-145)
[2022-11-03] MEDS ORDERED: HumaLOG 300 UNITS/3 ML VIAL SC PRN ×2 (03:18)
[2022-11-03] MEDS ORDERED: Dextrose 50% Abboject 50 ML SYRINGE SLOW IVP PRN (03:18)
[2022-11-03] MEDS ORDERED: Dextrose 5% in Water 1,000 ML IV PRN (03:18)
[2022-11-03] MEDS ORDERED: Ondansetron ODT 4 MG TAB PO PRN (03:20)
[2022-11-03] MEDS ORDERED: Acetaminophen 325 MG TAB PO PRN ×2 (03:20→03:30)
[2022-11-03] MEDS ORDERED: Ondansetron PF 4 MG/2 ML Vial IVP PRN ×2 (03:20→03:30)
[2022-11-03] MEDS ORDERED: Ondansetron ODT 4 MG TAB SL PRN (03:30)
[2022-11-03 03:53] LABS: #Eosinphils 0.2 thou/uL (0.0-0.7); #Monocytes 0.7 thou/uL (0.11-0.59); #Neutrophils 4.7 thou/uL (1.40-6.50); %Basophils 0.3 % (0.0-1.0); %Eosinophils 3.6 % (0.0-10.0); %Lymphocytes 15.9 % (21.0-51.0); %Monocytes 10.1 % (0.0-10.0); %Neutrophils 69.7 % (42.0-75.0); Hemoglobin 8.2 g/dL (12.0-16.0); Mean Corpuscular HGB CONC 31.1 g/dL (32.0-36.0); Mean Corpuscular Hemoglobin 30.1 pg (27.0-31.0); Mean Corpuscular Volume 97.1 fl (78.0-98.0); Mean Platelet Volume 9.2 fL (7.4-10.4); Platelet Count 224 10x3/uL (130-400); RBC Distribution Width 15.7 % (11.5-14.5); Red Blood Cell (RBC) Count 2.72 mill/uL (4.20-5.40); White Blood Cell (WBC) Count 6.7 10x3/uL (4.8-10.8)
[2022-11-03 04:02] LABS: Hemoglobin A1c 4.7 % (4.0-6.0)
[2022-11-03 04:16] LABS: Anion Gap 13 mmol/L (10-20); BUN (Urea Nitrogen) 93 mg/dL (9.8-20.1); Calc. Creatinine Clearance 0 mL/min (70-130); Calcium 9.3 mg/dL (7.8-10.44); Carbon Dioxide 23 mmol/L (23-31); Cardiac Risk 5.2 (Less than 4.5); Chloride 104 mmol/L (98-107); Cholesterol 162 mg/dl (< 200 Desired); Estimated GFR 12; Glucose 125 mg/dL (83-110); HDL Cholesterol 31 mg/dL (>60 Neg Risk); LDL Cholesterol, Calculated 113 mg/dL; Magnesium 1.7 mg/dL (1.6-2.6); Potassium 4.1 mmol/L (3.5-5.1); Sodium 136 mmol/L (136-145); Triglycerides 92 mg/dL (Less than 150)
[2022-11-03 04:20] LABS: Troponin I 0.013 ng/mL (< 0.028)
[2022-11-03] MEDS ORDERED: hydrALAZINE 20 MG/ML VIAL SLOW IVP PRN (09:36)
[2022-11-03] MEDS: Heparin 5,000 UNITS/ML VIAL SC SCH ×3 (09:56→20:04)
[2022-11-03] MEDS ORDERED: Non-Formulary Item 1 EACH (Ferrous Sulfate [Ferrous Sulfate] 325 MG Tab) PO SCH (11:45)
[2022-11-03] MEDS: Ferrous Sulfate 325 MG TAB PO SCH ×2 (13:30→13:31)
[2022-11-03] MEDS ORDERED: EPOETIN ALFA-EPBX (ESRD) 10,000 UNITS/ML VIAL SC SCH (15:15)
[2022-11-03] MEDS ORDERED: Furosemide 40 MG/4 ML VIAL SLOW IVP SCH (16:45)
[2022-11-03] MEDS: Carvedilol 25 MG TAB PO SCH (20:04)
[2022-11-03] MEDS: tiZANidine HCl 4 MG TAB PO SCH (20:04)
[2022-11-04 04:34] LABS: #Eosinphils 0.2 thou/uL (0.0-0.7); #Monocytes 0.6 thou/uL (0.11-0.59); #Neutrophils 4.8 thou/uL (1.40-6.50); %Basophils 0.4 % (0.0-1.0); %Eosinophils 3.2 % (0.0-10.0); %Lymphocytes 18.2 % (21.0-51.0); %Monocytes 8.4 % (0.0-10.0); %Neutrophils 69.5 % (42.0-75.0); Hemoglobin 7.6 g/dL (12.0-16.0); Mean Corpuscular HGB CONC 30.5 g/dL (32.0-36.0); Mean Corpuscular Hemoglobin 30.9 pg (27.0-31.0); Mean Corpuscular Volume 101.2 fl (78.0-98.0); Mean Platelet Volume 9.1 fL (7.4-10.4); Platelet Count 213 10x3/uL (130-400); RBC Distribution Width 15.8 % (11.5-14.5); Red Blood Cell (RBC) Count 2.46 mill/uL (4.20-5.40); White Blood Cell (WBC) Count 6.9 10x3/uL (4.8-10.8)
[2022-11-04 04:57] LABS: Anion Gap 13 mmol/L (10-20); BUN (Urea Nitrogen) 90 mg/dL (9.8-20.1); Calc. Creatinine Clearance 26 mL/min (70-130); Carbon Dioxide 22 mmol/L (23-31); Chloride 106 mmol/L (98-107); Estimated GFR 12; Glucose 102 mg/dL (83-110); Potassium 4.3 mmol/L (3.5-5.1); Sodium 137 mmol/L (136-145)
[2022-11-04] MEDS ORDERED: Minoxidil 2.5 MG TAB PO SCH (09:00)
[2022-11-04] MEDS: Furosemide 40 MG/4 ML VIAL SLOW IVP SCH (09:16)
[2022-11-04] MEDS: tiZANidine HCl 4 MG TAB PO SCH ×2 (09:16→20:31)
[2022-11-04] MEDS: Heparin 5,000 UNITS/ML VIAL SC SCH ×3 (09:17→20:22)
[2022-11-04] MEDS: Aspirin 81 mg Enteric Coated Tablet PO SCH (09:17)
[2022-11-04] MEDS: Carvedilol 25 MG TAB PO SCH (09:18)
[2022-11-04] MEDS ORDERED: Lactated Ringer's 500 ML IV SCH (11:15)
[2022-11-04] MEDS: Atorvastatin Calcium 40 MG TAB PO SCH (20:22)
[2022-11-04] MEDS: Carvedilol 6.25 MG TAB PO SCH (20:22)
[2022-11-05 05:47] LABS: #Eosinphils 0.2 thou/uL (0.0-0.7); #Monocytes 0.6 thou/uL (0.11-0.59); #Neutrophils 4.7 thou/uL (1.40-6.50); %Basophils 0.3 % (0.0-1.0); %Eosinophils 3.4 % (0.0-10.0); %Lymphocytes 17.9 % (21.0-51.0); %Monocytes 8.7 % (0.0-10.0); %Neutrophils 69.4 % (42.0-75.0); Hemoglobin 7.4 g/dL (12.0-16.0); Mean Corpuscular HGB CONC 30.6 g/dL (32.0-36.0); Mean Corpuscular Hemoglobin 31.2 pg (27.0-31.0); Mean Corpuscular Volume 102.1 fl (78.0-98.0); Mean Platelet Volume 9.1 fL (7.4-10.4); Platelet Count 212 10x3/uL (130-400); Red Blood Cell (RBC) Count 2.37 mill/uL (4.20-5.40); White Blood Cell (WBC) Count 6.7 10x3/uL (4.8-10.8)
[2022-11-05 06:36] LABS: Anion Gap 11 mmol/L (10-20); BUN (Urea Nitrogen) 95 mg/dL (9.8-20.1); Calc. Creatinine Clearance 26 mL/min (70-130); Calcium 8.8 mg/dL (7.8-10.44); Carbon Dioxide 25 mmol/L (23-31); Chloride 105 mmol/L (98-107); Estimated GFR 12; Glucose 120 mg/dL (83-110); Potassium 4.3 mmol/L (3.5-5.1); Sodium 137 mmol/L (136-145)
[2022-11-05] MEDS: Furosemide 40 MG/4 ML VIAL SLOW IVP SCH (08:50)
[2022-11-05] MEDS: tiZANidine HCl 4 MG TAB PO SCH ×2 (08:51→22:23)
[2022-11-05] MEDS: Heparin 5,000 UNITS/ML VIAL SC SCH ×3 (08:51→22:22)
[2022-11-05] MEDS: Aspirin 81 mg Enteric Coated Tablet PO SCH (08:52)
[2022-11-05] MEDS: Carvedilol 6.25 MG TAB PO SCH ×2 (08:52→22:21)
[2022-11-05] MEDS ORDERED: Clopidogrel Bisulfate 75 MG TAB PO SCH (09:00)
[2022-11-05] MEDS: Ferrous Sulfate 325 MG TAB PO SCH (11:48)
[2022-11-05] MEDS: Atorvastatin Calcium 40 MG TAB PO SCH (22:22)
[2022-11-06 05:27] LABS: #Eosinphils 0.2 thou/uL (0.0-0.7); #Monocytes 0.5 thou/uL (0.11-0.59); #Neutrophils 4.3 thou/uL (1.40-6.50); %Basophils 0.3 % (0.0-1.0); %Eosinophils 2.7 % (0.0-10.0); %Lymphocytes 20.7 % (21.0-51.0); %Monocytes 8.5 % (0.0-10.0); %Neutrophils 67.5 % (42.0-75.0); Hemoglobin 7.4 g/dL (12.0-16.0); Mean Corpuscular HGB CONC 28.6 g/dL (32.0-36.0); Mean Corpuscular Hemoglobin 30.6 pg (27.0-31.0); Mean Platelet Volume 9.4 fL (7.4-10.4); Platelet Count 136 10x3/uL (130-400); RBC Distribution Width 15.9 % (11.5-14.5); Red Blood Cell (RBC) Count 2.42 mill/uL (4.20-5.40); White Blood Cell (WBC) Count 6.3 10x3/uL (4.8-10.8)
[2022-11-06 06:03] LABS: Anion Gap 16 mmol/L (10-20); BUN (Urea Nitrogen) 89 mg/dL (9.8-20.1); Calc. Creatinine Clearance 25 mL/min (70-130); Calcium 8.9 mg/dL (7.8-10.44); Carbon Dioxide 19 mmol/L (23-31); Chloride 107 mmol/L (98-107); Estimated GFR 12; Glucose 95 mg/dL (83-110); Potassium 4.9 mmol/L (3.5-5.1); Sodium 137 mmol/L (136-145)
[2022-11-06] MEDS: Aspirin 81 mg Enteric Coated Tablet PO SCH (09:10)
[2022-11-06] MEDS: Carvedilol 6.25 MG TAB PO SCH ×2 (09:10→22:46)
[2022-11-06] MEDS: Heparin 5,000 UNITS/ML VIAL SC SCH ×3 (09:11→23:39)
[2022-11-06] MEDS: tiZANidine HCl 4 MG TAB PO SCH ×2 (09:11→22:48)
[2022-11-06] MEDS: Furosemide 40 MG/4 ML VIAL SLOW IVP SCH (09:11)
[2022-11-06] MEDS ORDERED: Clopidogrel Bisulfate 75 MG TAB PO SCH (09:15)
[2022-11-06 16:14] LABS: Platelet Count 210 10x3/uL (130-400)
[2022-11-06] MEDS: Atorvastatin Calcium 40 MG TAB PO SCH (22:48)
[2022-11-07 05:22] LABS: #Eosinphils 0.1 thou/uL (0.0-0.7); #Monocytes 0.5 thou/uL (0.11-0.59); #Neutrophils 4.6 thou/uL (1.40-6.50); %Basophils 0.5 % (0.0-1.0); %Eosinophils 2.1 % (0.0-10.0); %Lymphocytes 18.6 % (21.0-51.0); %Monocytes 8.1 % (0.0-10.0); %Neutrophils 70.4 % (42.0-75.0); Hemoglobin 7.4 g/dL (12.0-16.0); Mean Corpuscular HGB CONC 29.8 g/dL (32.0-36.0); Mean Corpuscular Hemoglobin 30.8 pg (27.0-31.0); Mean Corpuscular Volume 103.3 fl (78.0-98.0); Mean Platelet Volume 9.1 fL (7.4-10.4); Platelet Count 212 10x3/uL (130-400); RBC Distribution Width 15.7 % (11.5-14.5); White Blood Cell (WBC) Count 6.6 10x3/uL (4.8-10.8)
[2022-11-07 05:43] LABS: Anion Gap 11 mmol/L (10-20); BUN (Urea Nitrogen) 90 mg/dL (9.8-20.1); Calc. Creatinine Clearance 28 mL/min (70-130); Calcium 8.7 mg/dL (7.8-10.44); Carbon Dioxide 26 mmol/L (23-31); Chloride 105 mmol/L (98-107); Estimated GFR 12; Glucose 103 mg/dL (83-110); Potassium 4.4 mmol/L (3.5-5.1); Sodium 138 mmol/L (136-145)
[2022-11-07] MEDS: Heparin 5,000 UNITS/ML VIAL SC SCH ×3 (08:46→20:14)
[2022-11-07] MEDS: Carvedilol 6.25 MG TAB PO SCH ×2 (08:46→20:13)
[2022-11-07] MEDS: tiZANidine HCl 4 MG TAB PO SCH ×2 (08:46→20:13)
[2022-11-07] MEDS: Furosemide 40 MG/4 ML VIAL SLOW IVP SCH (08:47)
[2022-11-07] MEDS: Aspirin 81 mg Enteric Coated Tablet PO SCH (08:47)
[2022-11-07] MEDS ORDERED: Clopidogrel Bisulfate 75 MG TAB PO SCH (09:00)
[2022-11-07] MEDS: Ferrous Sulfate 325 MG TAB PO SCH (11:20)
[2022-11-07 14:51] VITALS: BMI 47.7
[2022-11-07] MEDS ORDERED: Furosemide 40 MG/4 ML VIAL SLOW IVP SCH (19:00)
[2022-11-07 19:32] VITALS: BP 167/66; TEMP 97.7
[2022-11-07] MEDS: Atorvastatin Calcium 40 MG TAB PO SCH (20:13)
[2022-11-08] MEDS ORDERED: Furosemide 40 MG TAB PO SCH (07:30)
== END 2022-11-07 22:00 | DRG 65 ==
LOC: ERS 18:22 → NEURO 11-03 02:15 → OBSVTOIN 11-03 16:26
PROVIDERS: ADMIT Student in an Organized Health Care Education/Training Program; ATTEND Family Medicine
PROC: 30233N1 Transfusion of Nonautologous Red Blood Cells into Peripheral Vein, Percutaneous Approach (ICD-10-PCS; principal; 2022-11-07)
DX: I63.9 Cerebral infarction, unspecified (principal); R29.710 NIHSS score 10; Z66 Do not resuscitate; I13.2 Hypertensive heart and chronic kidney disease with heart failure and with stage 5 chronic kidney disease, or end stage renal disease; Z68.42 Body mass index [BMI] 45.0-49.9, adult; N18.5 Chronic kidney disease, stage 5; N17.9 Acute kidney failure, unspecified; I50.9 Heart failure, unspecified; E66.9 Obesity, unspecified; G47.33 Obstructive sleep apnea (adult) (pediatric); L89.152 Pressure ulcer of sacral region, stage 2; D53.9 Nutritional anemia, unspecified; G83.14 Monoplegia of lower limb affecting left nondominant side; R20.0 Anesthesia of skin; E11.40 Type 2 diabetes mellitus with diabetic neuropathy, unspecified; E11.22 Type 2 diabetes mellitus with diabetic chronic kidney disease; J30.2 Other seasonal allergic rhinitis; R32 Unspecified urinary incontinence; E88.09 Other disorders of plasma-protein metabolism, not elsewhere classified; D63.1 Anemia in chronic kidney disease; E87.70 Fluid overload, unspecified; Z85.41 Personal history of malignant neoplasm of cervix uteri; Z95.0 Presence of cardiac pacemaker; Z88.5 Allergy status to narcotic agent; Z88.0 Allergy status to penicillin; Z88.8 Allergy status to other drugs, medicaments and biological substances; Z79.899 Other long term (current) drug therapy; Z79.82 Long term (current) use of aspirin; Z92.21 Personal history of antineoplastic chemotherapy; Z92.3 Personal history of irradiation; Z99.89 Dependence on other enabling machines and devices; Z90.89 Acquired absence of other organs; Z87.891 Personal history of nicotine dependence
CPT/HCPCS: 36415; 36416; 36430; 70450; 72125; 80048; 80061; 82040; 82550; 83036; 83735; 83880; 84443; 84484; 85025; 86850; 86900; 86901; 93005; 93306; 93880; 93970; 97139; G0378; J1644; J1815; J1940; J7120; P9016; Q5105

== ENCOUNTER 2023-02-14 16:21 | Inpatient (IN) | payer MEDICARE ==
[2023-02-14] MEDS ORDERED: cloNIDine 0.1 MG TAB PO PRN (20:43)
[2023-02-14] MEDS ORDERED: Hyoscyamine SL 0.125 MG TAB PO PRN (20:43)
[2023-02-14] MEDS ORDERED: Lorazepam 1 MG TAB PO PRN (20:43)
[2023-02-14] MEDS ORDERED: traMADol HCl 50 MG TAB PO PRN (20:43)
[2023-02-14] MEDS: Minoxidil 2.5 MG TAB PO SCH (21:43)
[2023-02-14] MEDS: Pantoprazole 40 MG VIAL IVP SCH (21:43)
[2023-02-14 21:55] LABS: #Basophils 0.1 thou/uL (0.0-0.2); #Monocytes 0.5 thou/uL (0.11-0.59); #Neutrophils 5.9 thou/uL (1.40-6.50); %Basophils 0.8 % (0.0-1.0); %Eosinophils 0.5 % (0.0-10.0); %Lymphocytes 16.3 % (21.0-51.0); %Monocytes 6.9 % (0.0-10.0); %Neutrophils 75.1 % (42.0-75.0); Hematocrit 23.9 % (36.0-47.0); Hemoglobin 7.6 g/dL (12.0-16.0); Mean Corpuscular HGB CONC 31.8 g/dL (32.0-36.0); Mean Corpuscular Hemoglobin 29.3 pg (27.0-31.0); Mean Corpuscular Volume 92.3 fl (78.0-98.0); Platelet Count 226 10x3/uL (130-400); RBC Distribution Width 14.2 % (11.5-14.5); Red Blood Cell (RBC) Count 2.59 mill/uL (4.20-5.40); White Blood Cell (WBC) Count 7.9 10x3/uL (4.8-10.8)
[2023-02-15] MEDS: traMADol HCl 50 MG TAB PO PRN (04:55)
[2023-02-15] MEDS ORDERED: Furosemide 20 MG/2 ML VIAL SLOW IVP SCH (06:44)
[2023-02-15] MEDS: Minoxidil 2.5 MG TAB PO SCH ×2 (08:14→21:20)
[2023-02-15] MEDS: Furosemide 40 MG TAB PO SCH (08:14)
[2023-02-15] MEDS: Gabapentin 100 MG CAP PO SCH (08:14)
[2023-02-15] MEDS: Pantoprazole 40 MG VIAL IVP SCH ×2 (08:15→21:20)
[2023-02-15] MEDS: DULoxetine 30 MG CAP PO SCH (08:15)
[2023-02-15 09:14] LABS: #Eosinphils 0.1 thou/uL (0.0-0.7); #Monocytes 0.6 thou/uL (0.11-0.59); #Neutrophils 5.9 thou/uL (1.40-6.50); %Basophils 0.5 % (0.0-1.0); %Eosinophils 0.8 % (0.0-10.0); %Lymphocytes 16.5 % (21.0-51.0); %Neutrophils 73.8 % (42.0-75.0); Hematocrit 23.5 % (36.0-47.0); Hemoglobin 7.6 g/dL (12.0-16.0); Mean Corpuscular HGB CONC 32.3 g/dL (32.0-36.0); Mean Corpuscular Hemoglobin 29.9 pg (27.0-31.0); Mean Corpuscular Volume 92.5 fl (78.0-98.0); Mean Platelet Volume 8.8 fL (7.4-10.4); Platelet Count 199 10x3/uL (130-400); RBC Distribution Width 14.1 % (11.5-14.5); Red Blood Cell (RBC) Count 2.54 mill/uL (4.20-5.40)
[2023-02-15 09:36] LABS: Anion Gap 16 mmol/L (10-20); BUN (Urea Nitrogen) 80 mg/dL (9.8-20.1); Calc. Creatinine Clearance 29 mL/min (70-130); Calcium 8.9 mg/dL (7.8-10.44); Carbon Dioxide 31 mmol/L (23-31); Chloride 99 mmol/L (98-107); Estimated GFR 18; Glucose 100 mg/dL (83-110); Sodium 142 mmol/L (136-145)
[2023-02-16] MEDS: tiZANidine HCl 4 MG TAB PO PRN ×2 (02:24→22:12)
[2023-02-16] MEDS: traMADol HCl 50 MG TAB PO PRN ×2 (02:24→13:04)
[2023-02-16 06:23] LABS: #Eosinphils 0.1 thou/uL (0.0-0.7); #Monocytes 0.7 thou/uL (0.11-0.59); %Basophils 0.4 % (0.0-1.0); %Eosinophils 0.6 % (0.0-10.0); %Lymphocytes 17.7 % (21.0-51.0); %Monocytes 7.9 % (0.0-10.0); %Neutrophils 72.9 % (42.0-75.0); Hematocrit 21.7 % (36.0-47.0); Hemoglobin 6.7 g/dL (12.0-16.0); Mean Corpuscular HGB CONC 30.9 g/dL (32.0-36.0); Mean Corpuscular Hemoglobin 29.5 pg (27.0-31.0); Mean Platelet Volume 8.8 fL (7.4-10.4); Platelet Count 167 10x3/uL (130-400); RBC Distribution Width 14.3 % (11.5-14.5); Red Blood Cell (RBC) Count 2.27 mill/uL (4.20-5.40); White Blood Cell (WBC) Count 8.3 10x3/uL (4.8-10.8)
[2023-02-16 06:50] LABS: Mean Corpuscular Volume 95.6 fl (78.0-98.0)
[2023-02-16 06:52] LABS: Anion Gap 14 mmol/L (10-20); BUN (Urea Nitrogen) 79 mg/dL (9.8-20.1); Calc. Creatinine Clearance 28 mL/min (70-130); Calcium 8.9 mg/dL (7.8-10.44); Carbon Dioxide 32 mmol/L (23-31); Chloride 99 mmol/L (98-107); Estimated GFR 17; Glucose 110 mg/dL (83-110); Potassium 4.1 mmol/L (3.5-5.1); Sodium 141 mmol/L (136-145)
[2023-02-16] MEDS: Minoxidil 2.5 MG TAB PO SCH ×2 (09:57→22:03)
[2023-02-16] MEDS: Pantoprazole 40 MG VIAL IVP SCH ×2 (09:57→22:04)
[2023-02-16] MEDS: Gabapentin 100 MG CAP PO SCH (09:58)
[2023-02-16] MEDS: Furosemide 40 MG TAB PO SCH (09:58)
[2023-02-16] MEDS: Ferrous Gluconate 324 MG TAB PO SCH (09:59)
[2023-02-16] MEDS: DULoxetine 30 MG CAP PO SCH (09:59)
[2023-02-16 10:01] VITALS: BMI 34.2
[2023-02-16 20:42] LABS: Hematocrit 29.5 % (36.0-47.0); Hemoglobin 9.4 g/dL (12.0-16.0)
[2023-02-17] MEDS: Minoxidil 2.5 MG TAB PO SCH ×2 (08:28→21:08)
[2023-02-17] MEDS: Furosemide 40 MG TAB PO SCH (08:29)
[2023-02-17] MEDS: Gabapentin 100 MG CAP PO SCH (08:29)
[2023-02-17] MEDS: Pantoprazole 40 MG VIAL IVP SCH ×2 (08:29→21:08)
[2023-02-17] MEDS: DULoxetine 30 MG CAP PO SCH (08:30)
[2023-02-17 10:17] LABS: #Eosinphils 0.1 thou/uL (0.0-0.7); #Monocytes 0.6 thou/uL (0.11-0.59); #Neutrophils 6.3 thou/uL (1.40-6.50); %Basophils 0.4 % (0.0-1.0); %Eosinophils 1.1 % (0.0-10.0); %Lymphocytes 15.6 % (21.0-51.0); %Monocytes 7.1 % (0.0-10.0); %Neutrophils 75.3 % (42.0-75.0); Hematocrit 29.7 % (36.0-47.0); Hemoglobin 9.4 g/dL (12.0-16.0); Mean Corpuscular HGB CONC 31.6 g/dL (32.0-36.0); Mean Corpuscular Hemoglobin 29.6 pg (27.0-31.0); Mean Corpuscular Volume 93.4 fl (78.0-98.0); Mean Platelet Volume 9.3 fL (7.4-10.4); Platelet Count 172 10x3/uL (130-400); RBC Distribution Width 14.6 % (11.5-14.5); Red Blood Cell (RBC) Count 3.18 mill/uL (4.20-5.40); White Blood Cell (WBC) Count 8.4 10x3/uL (4.8-10.8)
[2023-02-17 10:43] LABS: Anion Gap 13 mmol/L (10-20); BUN (Urea Nitrogen) 73 mg/dL (9.8-20.1); Calc. Creatinine Clearance 29 mL/min (70-130); Calcium 8.9 mg/dL (7.8-10.44); Carbon Dioxide 33 mmol/L (23-31); Chloride 96 mmol/L (98-107); Estimated GFR 18; Glucose 129 mg/dL (83-110); Potassium 3.7 mmol/L (3.5-5.1); Sodium 138 mmol/L (136-145)
[2023-02-18 07:32] LABS: Chloride 97 mmol/L (98-107); Potassium 3.6 mmol/L (3.5-5.1); Sodium 138 mmol/L (136-145)
[2023-02-18 07:33] LABS: Glucose 123 mg/dL (83-110)
[2023-02-18 07:35] LABS: Anion Gap 14 mmol/L (10-20); Carbon Dioxide 31 mmol/L (23-31)
[2023-02-18 07:37] LABS: Calc. Creatinine Clearance 33 mL/min (70-130); Estimated GFR 20
[2023-02-18 07:38] LABS: BUN (Urea Nitrogen) 72 mg/dL (9.8-20.1)
[2023-02-18] MEDS: Furosemide 40 MG TAB PO SCH (08:54)
[2023-02-18] MEDS: DULoxetine 30 MG CAP PO SCH (08:54)
[2023-02-18] MEDS: Minoxidil 2.5 MG TAB PO SCH ×2 (08:54→20:25)
[2023-02-18] MEDS: Gabapentin 100 MG CAP PO SCH (08:54)
[2023-02-18] MEDS: Pantoprazole 40 MG VIAL IVP SCH (08:55)
[2023-02-18] MEDS ORDERED: Potassium Chloride 40 MEQ in Premix Bag 1 BAG IVPB ONE (08:57)
[2023-02-18] MEDS ORDERED: Potassium Chloride 20 MEQ in Premix Bag 1 BAG IVPB SCH (09:45)
[2023-02-18 10:12] LABS: #Eosinphils 0.1 thou/uL (0.0-0.7); #Monocytes 0.7 thou/uL (0.11-0.59); #Neutrophils 7.1 thou/uL (1.40-6.50); %Basophils 0.3 % (0.0-1.0); %Eosinophils 0.6 % (0.0-10.0); %Lymphocytes 16.7 % (21.0-51.0); %Monocytes 7.3 % (0.0-10.0); %Neutrophils 74.8 % (42.0-75.0); Hematocrit 27.8 % (36.0-47.0); Hemoglobin 8.9 g/dL (12.0-16.0); Mean Corpuscular Hemoglobin 29.9 pg (27.0-31.0); Mean Corpuscular Volume 93.3 fl (78.0-98.0); Mean Platelet Volume 9.1 fL (7.4-10.4); Platelet Count 166 10x3/uL (130-400); RBC Distribution Width 14.2 % (11.5-14.5); Red Blood Cell (RBC) Count 2.98 mill/uL (4.20-5.40); White Blood Cell (WBC) Count 9.4 10x3/uL (4.8-10.8)
[2023-02-18] MEDS ORDERED: Potassium Chloride 20 MEQ TAB PO SCH (14:00)
[2023-02-18] MEDS: tiZANidine HCl 4 MG TAB PO PRN (20:25)
[2023-02-19 05:09] LABS: #Eosinphils 0.1 thou/uL (0.0-0.7); #Monocytes 0.6 thou/uL (0.11-0.59); #Neutrophils 8.2 thou/uL (1.40-6.50); %Basophils 0.3 % (0.0-1.0); %Eosinophils 0.9 % (0.0-10.0); %Monocytes 5.8 % (0.0-10.0); %Neutrophils 77.6 % (42.0-75.0); Hematocrit 29.7 % (36.0-47.0); Hemoglobin 9.5 g/dL (12.0-16.0); Mean Corpuscular Hemoglobin 29.4 pg (27.0-31.0); Mean Platelet Volume 9.2 fL (7.4-10.4); Platelet Count 178 10x3/uL (130-400); RBC Distribution Width 13.8 % (11.5-14.5); Red Blood Cell (RBC) Count 3.23 mill/uL (4.20-5.40); White Blood Cell (WBC) Count 10.6 10x3/uL (4.8-10.8)
[2023-02-19 05:51] LABS: Anion Gap 12 mmol/L (10-20); BUN (Urea Nitrogen) 76 mg/dL (9.8-20.1); Calc. Creatinine Clearance 32 mL/min (70-130); Calcium 8.9 mg/dL (7.8-10.44); Carbon Dioxide 34 mmol/L (23-31); Chloride 96 mmol/L (98-107); Estimated GFR 19; Glucose 106 mg/dL (83-110); Potassium 4.1 mmol/L (3.5-5.1); Sodium 138 mmol/L (136-145)
[2023-02-19] MEDS ORDERED: Famotidine 20 MG TAB PO SCH (09:00)
[2023-02-19] MEDS: Furosemide 40 MG TAB PO SCH (09:28)
[2023-02-19] MEDS: DULoxetine 30 MG CAP PO SCH (09:28)
[2023-02-19] MEDS: Gabapentin 100 MG CAP PO SCH (09:28)
[2023-02-19] MEDS: Minoxidil 2.5 MG TAB PO SCH (09:28)
[2023-02-19] MEDS: Ferrous Gluconate 324 MG TAB PO SCH (09:32)
[2023-02-19 18:08] VITALS: BP 154/68; TEMP 97.9
[2023-02-21] MEDS ORDERED: EPOETIN ALFA-EPBX (ESRD) 10,000 UNITS/ML VIAL SC SCH (09:00)
== END 2023-02-19 18:22 | DRG 393 ==
LOC: 2NO 18:02 → OBSVTOIN 02-15 01:19
PROVIDERS: ADMIT Family Medicine; ATTEND Family Medicine
PROC: 30233N1 Transfusion of Nonautologous Red Blood Cells into Peripheral Vein, Percutaneous Approach (ICD-10-PCS; principal; 2023-02-15)
DX: K64.8 Other hemorrhoids (principal); L89.154 Pressure ulcer of sacral region, stage 4; I13.2 Hypertensive heart and chronic kidney disease with heart failure and with stage 5 chronic kidney disease, or end stage renal disease; N18.5 Chronic kidney disease, stage 5; N17.9 Acute kidney failure, unspecified; I50.22 Chronic systolic (congestive) heart failure; N28.9 Disorder of kidney and ureter, unspecified; E11.22 Type 2 diabetes mellitus with diabetic chronic kidney disease; E66.9 Obesity, unspecified; J30.2 Other seasonal allergic rhinitis; R32 Unspecified urinary incontinence; D63.1 Anemia in chronic kidney disease; Z96.643 Presence of artificial hip joint, bilateral; Z88.5 Allergy status to narcotic agent; Z88.0 Allergy status to penicillin; Z88.8 Allergy status to other drugs, medicaments and biological substances; Z79.899 Other long term (current) drug therapy; Z95.0 Presence of cardiac pacemaker; Z85.41 Personal history of malignant neoplasm of cervix uteri; Z92.21 Personal history of antineoplastic chemotherapy; Z90.89 Acquired absence of other organs; Z87.891 Personal history of nicotine dependence; Z86.73 Personal history of transient ischemic attack (TIA), and cerebral infarction without residual deficits; Z68.36 Body mass index [BMI] 36.0-36.9, adult; Z79.02 Long term (current) use of antithrombotics/antiplatelets
CPT/HCPCS: 36415; 36430; 80048; 82274; 85025; 86850; 86900; 86901; 97139; C9113; J1940; P9016

== ENCOUNTER 2023-02-21 13:52 | Inpatient (IN) | payer MEDICARE ==
[~2023-02-21 13:52] MED LIST: Iopamidol-370 76% 500 ML MDV (1 ML CHARGE) ONE
[2023-02-21] MEDS ORDERED: Fentanyl CADD 100 ML IV SCH ×2 (14:00→22:15)
[2023-02-21 14:32] LABS: Actual Bicarbonate (HCO3a) 33.2 mEq/L (22-28); Analyzer IN Cardio ER; Base Excess (BEa) 9.2 mEq/L (-2.0 to +3.0); CO2 Tension 43.1 mmHg (35.0-45.0); Calcium, Ionized (arterial) 1.11 mmol/L (1.12-1.30); Carboxyhemoglobin (COHb) 0.3 gm% (0.0-3.0); Hematocrit-ABG 29 % (36.0-47.0); Hemoglobin (Hb) 9.7 g/dL (12.0-16.0); O2 Tension (PaO2), arterial 85.8 mmHg (> 70.0); Potassium - ABG Lab 3.59 mmol/L (3.70-5.30); pH, Arterial 7.504 (7.35-7.45)
[2023-02-21 14:35] LABS: ALV-art Gradient 145.525 mmHg (0-20); Puncture Site RRA
[2023-02-21 14:58] LABS: #Eosinphils 0.1 thou/uL (0.0-0.7); #Monocytes 0.4 thou/uL (0.11-0.59); #Neutrophils 9.3 thou/uL (1.40-6.50); %Basophils 0.2 % (0.0-1.0); %Eosinophils 0.8 % (0.0-10.0); %Lymphocytes 10.3 % (21.0-51.0); %Monocytes 3.8 % (0.0-10.0); %Neutrophils 84.3 % (42.0-75.0); Hemoglobin 9.8 g/dL (12.0-16.0); Mean Corpuscular HGB CONC 32.7 g/dL (32.0-36.0); Mean Corpuscular Hemoglobin 29.6 pg (27.0-31.0); Mean Corpuscular Volume 90.6 fl (78.0-98.0); Mean Platelet Volume 9.5 fL (7.4-10.4); Platelet Count 212 10x3/uL (130-400); RBC Distribution Width 13.6 % (11.5-14.5); Red Blood Cell (RBC) Count 3.31 mill/uL (4.20-5.40)
[2023-02-21 15:20] LABS: Troponin I 0.027 ng/mL (< 0.028)
[2023-02-21 15:37] LABS: ALT (SGPT) Less than 7 U/L (8-55); AST (SGOT) 17 U/L (5-34); Albumin 2.3 g/dL (3.4-4.8); Alkaline Phosphatase 52 U/L (40-110); Anion Gap 16 mmol/L (10-20); BUN (Urea Nitrogen) 66 mg/dL (9.8-20.1); Bilirubin, Total 0.7 mg/dL (0.2-1.2); Calc. Creatinine Clearance 0 mL/min (70-130); Calcium 8.6 mg/dL (7.8-10.44); Carbon Dioxide 31 mmol/L (23-31); Chloride 96 mmol/L (98-107); Estimated GFR 20; Globulin 4.2 g/dL (2.4-3.5); Glucose 159 mg/dL (83-110); Potassium 4.7 mmol/L (3.5-5.1); Protein, Total 6.5 g/dL (5.8-8.1); Sodium 138 mmol/L (136-145)
[2023-02-21 15:48] LABS: Bacteria/HPF None Seen HPF (None Seen); Bilirubin Negative (Negative); Blood, Urine Trace (Negative); CAUTI Indications for Culture Alt mental st,lethar; Clarity Clear (Clear); Glucose, Urine (Dipstick) Normal (Negative); Ketone, Urine Negative (Negative); Leukocyte 75 Leu/uL (Negative); Nitrite Negative (Negative); Protein, Urine (Dipstick) 10 mg/dL (Neg-Trace); RBC/HPF 0-3 HPF (0-3); Specific Gravity, Urine 1.014 (1.002-1.036); Squamous Epithelial None Seen HPF (0-3); Urobilinogen Normal mg/dL (Less than 2); pH, Urine 7.5 (5.0-9.0)
[2023-02-21 15:50] LABS: Urine Culture Reflex No No
[2023-02-21] MEDS ORDERED: Vancomycin 1 GM/200 ML (FROZEN) BAG ONE (15:55)
[2023-02-21] MEDS ORDERED: Meropenem 1 GM in Sodium Chloride 0.9% 100 ML IVPB SCH (16:00)
[2023-02-21 16:23] LABS: PTT 19.4 sec (22.9-36.1); Prothrombin Time 13.5 sec (12.0-14.7)
[2023-02-21] MEDS ORDERED: Electrolyte Replacement Protocol IVPB SCH (16:42)
[2023-02-21] MEDS ORDERED: Ventilator Sedation Protocol FS SCH (16:45)
[2023-02-21 16:46] LABS: Free T4 (Free Thyroxine) 1.58 ng/dL (0.70-1.48); Thyroid Stimulating Hormone 2.1303 uIU/mL (0.35-4.94)
[2023-02-21] MEDS ORDERED: Lactated Ringer's 1,000 ML IV SCH (17:30)
[2023-02-21] MEDS ORDERED: HumaLOG 300 UNITS/3 ML VIAL SC PRN ×2 (20:17)
[2023-02-21] MEDS ORDERED: Glucagon 1 MG/ML KIT IM PRN (20:17)
[2023-02-21] MEDS ORDERED: Dextrose 50% Abboject 50 ML SYRINGE SLOW IVP PRN (20:17)
[2023-02-21] MEDS ORDERED: Dextrose 5% in Water 1,000 ML IV PRN (20:17)
[2023-02-21] MEDS ORDERED: Cefepime 1 GM in Sodium Chloride 0.9% 100 ML IVPB SCH (21:00)
[2023-02-21] MEDS ORDERED: Vancomycin Dose by Levels Sliding Scale (Wt 71-99) FS SCH (21:00)
[2023-02-21] MEDS: cloNIDine 0.2 MG TAB PO SCH (21:45)
[2023-02-21] MEDS: Vancomycin 1 GM in Premix Bag 1 BAG IVPB SCH ×2 (21:46→21:51)
[2023-02-21] MEDS: metroNIDAZOLE 500 MG in Premix Bag 1 BAG IVPB SCH (21:58)
[2023-02-21] MEDS ORDERED: DISCONTINUE PREVIOUS NARCOTIC PAIN MEDICATIONS AND BENZODIAZEPINES FS SCH (22:15)
[2023-02-21] MEDS ORDERED: Propofol BOLUS 1,000 MG/100 ML VIAL IV PRN (22:15)
[2023-02-21] MEDS ORDERED: Propofol 1,000 MG/100 ML VIAL IV PRN (22:15)
[2023-02-21] MEDS ORDERED: Fentanyl BOLUS 250 ML IVPB PRN (22:15)
[2023-02-21] MEDS ORDERED: Lorazepam 2 MG/ML VIAL SLOW IVP PRN (22:15)
[2023-02-22 04:11] LABS: #Eosinphils 0.1 thou/uL (0.0-0.7); #Monocytes 0.6 thou/uL (0.11-0.59); #Neutrophils 6.8 thou/uL (1.40-6.50); %Basophils 0.2 % (0.0-1.0); %Lymphocytes 14.3 % (21.0-51.0); %Monocytes 7.2 % (0.0-10.0); Hematocrit 27.9 % (36.0-47.0); Mean Corpuscular HGB CONC 32.3 g/dL (32.0-36.0); Mean Corpuscular Hemoglobin 29.4 pg (27.0-31.0); Mean Corpuscular Volume 91.2 fl (78.0-98.0); Mean Platelet Volume 9.5 fL (7.4-10.4); Platelet Count 253 10x3/uL (130-400); RBC Distribution Width 13.7 % (11.5-14.5); Red Blood Cell (RBC) Count 3.06 mill/uL (4.20-5.40); White Blood Cell (WBC) Count 8.8 10x3/uL (4.8-10.8)
[2023-02-22 04:35] LABS: ALT (SGPT) Less than 7 U/L (8-55); AST (SGOT) 9 U/L (5-34); Albumin 2.4 g/dL (3.4-4.8); Alkaline Phosphatase 50 U/L (40-110); Anion Gap 15 mmol/L (10-20); BUN (Urea Nitrogen) 61 mg/dL (9.8-20.1); Bilirubin, Total 0.5 mg/dL (0.2-1.2); CK (CPK) 26 U/L (29-168); Calc. Creatinine Clearance 32 mL/min (70-130); Calcium 8.8 mg/dL (7.8-10.44); Carbon Dioxide 31 mmol/L (23-31); Chloride 98 mmol/L (98-107); Estimated GFR 21; Globulin 3.9 g/dL (2.4-3.5); Glucose 115 mg/dL (83-110); Potassium 3.5 mmol/L (3.5-5.1); Protein, Total 6.3 g/dL (5.8-8.1); Sodium 140 mmol/L (136-145)
[2023-02-22] MEDS: metroNIDAZOLE 500 MG in Premix Bag 1 BAG IVPB SCH (05:26)
[2023-02-22] MEDS: Potassium Chloride 20 MEQ in Premix Bag 1 BAG IVPB SCH (06:39)
[2023-02-22] MEDS ORDERED: Furosemide 40 MG/4 ML VIAL SLOW IVP SCH (07:45)
[2023-02-22] MEDS: cloNIDine 0.2 MG TAB PO SCH ×2 (08:01→20:40)
[2023-02-22] MEDS: Pantoprazole 40 MG VIAL IVP SCH (08:01)
[2023-02-22] MEDS ORDERED: Labetalol HCl 100 MG/20 ML VIAL SLOW IVP SCH (09:00)
[2023-02-22] MEDS: Carvedilol 25 MG TAB PO SCH (10:17)
[2023-02-22] MEDS: Ascorbic Acid 500 mg Chewable Tablet PO SCH (20:39)
[2023-02-22] MEDS: Cholecalciferol 1,000 UNITS (25 MCG) TAB PO SCH (20:39)
[2023-02-22] MEDS: pyridOXINE 50 MG (B6) TAB PO SCH (20:40)
[2023-02-22 21:50] LABS: Vancomycin, Random 21.3 ug/mL (See Comment)
[2023-02-23] MEDS: Ascorbic Acid 500 mg Chewable Tablet PO SCH ×4 (02:16→20:35)
[2023-02-23 04:10] LABS: #Eosinphils 0.1 thou/uL (0.0-0.7); #Monocytes 0.8 thou/uL (0.11-0.59); #Neutrophils 6.5 thou/uL (1.40-6.50); %Basophils 0.3 % (0.0-1.0); %Eosinophils 1.2 % (0.0-10.0); %Lymphocytes 18.5 % (21.0-51.0); %Monocytes 8.7 % (0.0-10.0); %Neutrophils 71.1 % (42.0-75.0); Hematocrit 26.1 % (36.0-47.0); Hemoglobin 8.4 g/dL (12.0-16.0); Mean Corpuscular HGB CONC 32.2 g/dL (32.0-36.0); Mean Corpuscular Hemoglobin 29.5 pg (27.0-31.0); Mean Corpuscular Volume 91.6 fl (78.0-98.0); Mean Platelet Volume 9.3 fL (7.4-10.4); Platelet Count 251 10x3/uL (130-400); RBC Distribution Width 13.8 % (11.5-14.5); Red Blood Cell (RBC) Count 2.85 mill/uL (4.20-5.40); White Blood Cell (WBC) Count 9.1 10x3/uL (4.8-10.8)
[2023-02-23 04:37] LABS: ALT (SGPT) Less than 7 U/L (8-55); AST (SGOT) 12 U/L (5-34); Albumin 2.1 g/dL (3.4-4.8); Alkaline Phosphatase 49 U/L (40-110); Anion Gap 13 mmol/L (10-20); BUN (Urea Nitrogen) 56 mg/dL (9.8-20.1); Bilirubin, Total 0.5 mg/dL (0.2-1.2); Calc. Creatinine Clearance 34 mL/min (70-130); Calcium 8.5 mg/dL (7.8-10.44); Carbon Dioxide 34 mmol/L (23-31); Chloride 98 mmol/L (98-107); Estimated GFR 22; Globulin 3.7 g/dL (2.4-3.5); Glucose 90 mg/dL (83-110); Potassium 3.8 mmol/L (3.5-5.1); Protein, Total 5.8 g/dL (5.8-8.1); Sodium 141 mmol/L (136-145)
[2023-02-23 07:40] LABS: Actual Bicarbonate (HCO3a) 33.5 mEq/L (22-28); Base Excess (BEa) 9.5 mEq/L (-2.0 to +3.0); Calcium, Ionized (arterial) 1.11 mmol/L (1.12-1.30); Carboxyhemoglobin (COHb) 0.4 gm% (0.0-3.0); Hematocrit-ABG 27 % (36.0-47.0); Hemoglobin (Hb) 9.3 g/dL (12.0-16.0); O2 Tension (PaO2), arterial 140.3 mmHg (> 70.0); Potassium - ABG Lab 3.67 mmol/L (3.70-5.30); pH, Arterial 7.509 (7.35-7.45)
[2023-02-23 07:46] LABS: Puncture Site RRA
[2023-02-23] MEDS: Zinc Sulfate 220 MG CAP PO SCH (10:07)
[2023-02-23] MEDS: pyridOXINE 50 MG (B6) TAB PO SCH ×2 (10:07→20:36)
[2023-02-23] MEDS: cloNIDine 0.2 MG TAB PO SCH ×2 (10:07→20:36)
[2023-02-23] MEDS: Pantoprazole 40 MG VIAL IVP SCH (10:07)
[2023-02-23] MEDS: Thiamine 100 MG TAB PO SCH (10:07)
[2023-02-23] MEDS: Carvedilol 25 MG TAB PO SCH (10:08)
[2023-02-23] MEDS: Furosemide 40 MG TAB PO SCH (10:09)
[2023-02-23] MEDS: Collagenase 250 UNITS/GM Ointment 30 GM TUBE TOP SCH (10:45)
[2023-02-23] MEDS: Cholecalciferol 1,000 UNITS (25 MCG) TAB PO SCH (20:35)
[2023-02-23] MEDS: Lorazepam 0.5 MG TAB PO SCH (20:35)
[2023-02-24] MEDS: Ascorbic Acid 500 mg Chewable Tablet PO SCH ×4 (02:51→22:48)
[2023-02-24 04:33] LABS: #Eosinphils 0.1 thou/uL (0.0-0.7); #Monocytes 0.8 thou/uL (0.11-0.59); #Neutrophils 6.3 thou/uL (1.40-6.50); %Basophils 0.3 % (0.0-1.0); %Eosinophils 1.6 % (0.0-10.0); %Lymphocytes 18.4 % (21.0-51.0); %Monocytes 8.7 % (0.0-10.0); %Neutrophils 70.6 % (42.0-75.0); Hematocrit 25.8 % (36.0-47.0); Hemoglobin 8.1 g/dL (12.0-16.0); Mean Corpuscular HGB CONC 31.4 g/dL (32.0-36.0); Mean Corpuscular Hemoglobin 29.3 pg (27.0-31.0); Mean Corpuscular Volume 93.5 fl (78.0-98.0); Mean Platelet Volume 9.5 fL (7.4-10.4); Platelet Count 272 10x3/uL (130-400); RBC Distribution Width 14.1 % (11.5-14.5); Red Blood Cell (RBC) Count 2.76 mill/uL (4.20-5.40); White Blood Cell (WBC) Count 8.9 10x3/uL (4.8-10.8)
[2023-02-24 04:58] LABS: ALT (SGPT) Less than 7 U/L (8-55); AST (SGOT) 15 U/L (5-34); Albumin 2.2 g/dL (3.4-4.8); Alkaline Phosphatase 47 U/L (40-110); Anion Gap 12 mmol/L (10-20); BUN (Urea Nitrogen) 52 mg/dL (9.8-20.1); Bilirubin, Total 0.4 mg/dL (0.2-1.2); Calc. Creatinine Clearance 34 mL/min (70-130); Calcium 8.5 mg/dL (7.8-10.44); Carbon Dioxide 31 mmol/L (23-31); Chloride 101 mmol/L (98-107); Estimated GFR 22; Globulin 3.7 g/dL (2.4-3.5); Glucose 108 mg/dL (83-110); Potassium 3.8 mmol/L (3.5-5.1); Protein, Total 5.9 g/dL (5.8-8.1); Sodium 140 mmol/L (136-145)
[2023-02-24] MEDS ORDERED: Ibuprofen 800 MG TAB PO PRN (08:26)
[2023-02-24] MEDS: Thiamine 100 MG TAB PO SCH (08:39)
[2023-02-24] MEDS: Furosemide 40 MG TAB PO SCH (08:39)
[2023-02-24] MEDS: Carvedilol 25 MG TAB PO SCH (08:39)
[2023-02-24] MEDS: cloNIDine 0.2 MG TAB PO SCH ×2 (08:39→22:49)
[2023-02-24] MEDS: Zinc Sulfate 220 MG CAP PO SCH (08:39)
[2023-02-24] MEDS: pyridOXINE 50 MG (B6) TAB PO SCH ×2 (08:39→22:49)
[2023-02-24] MEDS: Pantoprazole 40 MG VIAL IVP SCH (08:40)
[2023-02-24] MEDS: Lorazepam 0.5 MG TAB PO SCH ×2 (08:40→22:49)
[2023-02-24] MEDS: Collagenase 250 UNITS/GM Ointment 30 GM TUBE TOP SCH (08:41)
[2023-02-24] MEDS: Cholecalciferol 1,000 UNITS (25 MCG) TAB PO SCH (22:48)
[2023-02-25] MEDS: Ascorbic Acid 500 mg Chewable Tablet PO SCH ×4 (03:08→20:12)
[2023-02-25 07:10] LABS: #Eosinphils 0.2 thou/uL (0.0-0.7); #Monocytes 0.7 thou/uL (0.11-0.59); #Neutrophils 5.4 thou/uL (1.40-6.50); %Basophils 0.5 % (0.0-1.0); %Eosinophils 2.1 % (0.0-10.0); %Lymphocytes 23.8 % (21.0-51.0); %Monocytes 8.6 % (0.0-10.0); %Neutrophils 64.5 % (42.0-75.0); Hematocrit 25.8 % (36.0-47.0); Mean Corpuscular Hemoglobin 29.3 pg (27.0-31.0); Mean Corpuscular Volume 94.5 fl (78.0-98.0); Mean Platelet Volume 9.8 fL (7.4-10.4); Platelet Count 310 10x3/uL (130-400); RBC Distribution Width 14.1 % (11.5-14.5); Red Blood Cell (RBC) Count 2.73 mill/uL (4.20-5.40); White Blood Cell (WBC) Count 8.4 10x3/uL (4.8-10.8)
[2023-02-25 07:32] LABS: ALT (SGPT) 7 U/L (8-55); AST (SGOT) 12 U/L (5-34); Albumin 2.3 g/dL (3.4-4.8); Alkaline Phosphatase 49 U/L (40-110); Anion Gap 14 mmol/L (10-20); BUN (Urea Nitrogen) 47 mg/dL (9.8-20.1); Bilirubin, Total 0.4 mg/dL (0.2-1.2); Calc. Creatinine Clearance 36 mL/min (70-130); Calcium 8.5 mg/dL (7.8-10.44); Carbon Dioxide 30 mmol/L (23-31); Chloride 100 mmol/L (98-107); Estimated GFR 23; Globulin 3.8 g/dL (2.4-3.5); Glucose 107 mg/dL (83-110); Potassium 3.8 mmol/L (3.5-5.1); Protein, Total 6.1 g/dL (5.8-8.1); Sodium 140 mmol/L (136-145)
[2023-02-25] MEDS: pyridOXINE 50 MG (B6) TAB PO SCH ×2 (08:12→20:15)
[2023-02-25] MEDS: Furosemide 40 MG TAB PO SCH (08:12)
[2023-02-25] MEDS: cloNIDine 0.2 MG TAB PO SCH ×2 (08:12→20:12)
[2023-02-25] MEDS: Pantoprazole 40 MG VIAL IVP SCH (08:12)
[2023-02-25] MEDS: Thiamine 100 MG TAB PO SCH (08:12)
[2023-02-25] MEDS: Carvedilol 25 MG TAB PO SCH (08:13)
[2023-02-25] MEDS: Lorazepam 0.5 MG TAB PO SCH (08:13)
[2023-02-25] MEDS: Zinc Sulfate 220 MG CAP PO SCH (08:13)
[2023-02-25] MEDS: Collagenase 250 UNITS/GM Ointment 30 GM TUBE TOP SCH (08:15)
[2023-02-25] MEDS: Cholecalciferol 1,000 UNITS (25 MCG) TAB PO SCH (20:12)
[2023-02-25] MEDS: Loperamide HCl 2 MG CAP PO PRN (21:27)
[2023-02-25 23:56] LABS: Actual Bicarbonate (HCO3a) 36.6 mEq/L (22-28); Base Excess (BEa) 7.4 mEq/L (-2.0 to +3.0); Calcium, Ionized (arterial) 1.15 mmol/L (1.12-1.30); Carboxyhemoglobin (COHb) 0.5 gm% (0.0-3.0); Hematocrit-ABG 29 % (36.0-47.0); O2 Tension (PaO2), arterial 75.5 mmHg (> 70.0); Potassium - ABG Lab 3.81 mmol/L (3.70-5.30); pH, Arterial 7.254 (7.35-7.45)
[2023-02-25 23:58] LABS: ALV-art Gradient 46.785 mmHg (0-20); CO2 Tension 84.7 mmHg (35.0-45.0); Puncture Site RBA
[2023-02-26] MEDS ORDERED: dilTIAZem 125 MG in Sodium Chloride 0.9% 100 ML IVPB SCH (00:45)
[2023-02-26] MEDS ORDERED: Furosemide 40 MG/4 ML VIAL SLOW IVP SCH (00:45)
[2023-02-26] MEDS ORDERED: dilTIAZem 25 MG/5 ML VIAL SLOW IVP SCH (01:15)
[2023-02-26] MEDS: Ascorbic Acid 500 mg Chewable Tablet PO SCH ×4 (01:36→20:00)
[2023-02-26] MEDS: Acetaminophen 325 MG TAB PO PRN ×2 (01:36→21:05)
[2023-02-26 04:10] LABS: #Eosinphils 0.1 thou/uL (0.0-0.7); #Monocytes 0.6 thou/uL (0.11-0.59); #Neutrophils 8.7 thou/uL (1.40-6.50); %Basophils 0.3 % (0.0-1.0); %Eosinophils 0.6 % (0.0-10.0); %Lymphocytes 15.9 % (21.0-51.0); %Monocytes 5.1 % (0.0-10.0); %Neutrophils 77.4 % (42.0-75.0); Hematocrit 25.4 % (36.0-47.0); Hemoglobin 7.9 g/dL (12.0-16.0); Mean Corpuscular HGB CONC 31.1 g/dL (32.0-36.0); Mean Corpuscular Hemoglobin 29.7 pg (27.0-31.0); Mean Corpuscular Volume 95.5 fl (78.0-98.0); Mean Platelet Volume 9.7 fL (7.4-10.4); Platelet Count 272 10x3/uL (130-400); Red Blood Cell (RBC) Count 2.66 mill/uL (4.20-5.40); White Blood Cell (WBC) Count 11.3 10x3/uL (4.8-10.8)
[2023-02-26 04:37] LABS: ALT (SGPT) 10 U/L (8-55); AST (SGOT) 19 U/L (5-34); Albumin 2.2 g/dL (3.4-4.8); Alkaline Phosphatase 62 U/L (40-110); Anion Gap 14 mmol/L (10-20); BUN (Urea Nitrogen) 46 mg/dL (9.8-20.1); Bilirubin, Total 0.3 mg/dL (0.2-1.2); Calc. Creatinine Clearance 32 mL/min (70-130); Calcium 8.3 mg/dL (7.8-10.44); Carbon Dioxide 30 mmol/L (23-31); Chloride 98 mmol/L (98-107); Estimated GFR 21; Globulin 3.8 g/dL (2.4-3.5); Glucose 138 mg/dL (83-110); Potassium 3.9 mmol/L (3.5-5.1); Sodium 138 mmol/L (136-145)
[2023-02-26] MEDS ORDERED: cloNIDine 0.1 MG TAB PO SCH (05:15)
[2023-02-26] MEDS: Furosemide 40 MG TAB PO SCH (06:37)
[2023-02-26] MEDS: cloNIDine 0.2 MG TAB PO SCH (08:25)
[2023-02-26] MEDS: pyridOXINE 50 MG (B6) TAB PO SCH ×2 (08:25→21:07)
[2023-02-26] MEDS: Carvedilol 25 MG TAB PO SCH ×2 (08:25→21:06)
[2023-02-26] MEDS: Collagenase 250 UNITS/GM Ointment 30 GM TUBE TOP SCH (08:26)
[2023-02-26] MEDS: Lorazepam 0.5 MG TAB PO SCH (08:26)
[2023-02-26] MEDS: Thiamine 100 MG TAB PO SCH (08:26)
[2023-02-26] MEDS: Zinc Sulfate 220 MG CAP PO SCH (08:26)
[2023-02-26] MEDS: Minoxidil 2.5 MG TAB PO SCH ×2 (09:35→21:07)
[2023-02-26] MEDS ORDERED: Senokot S 8.6-50 MG TAB PO PRN (12:20)
[2023-02-26 15:47] VITALS: BMI 33.8
[2023-02-26] MEDS: Loperamide HCl 2 MG CAP PO PRN ×2 (18:27→21:05)
[2023-02-26] MEDS ORDERED: Isosorbide Dinitrate 20 MG TAB PO SCH (21:00)
[2023-02-26] MEDS: Cholecalciferol 1,000 UNITS (25 MCG) TAB PO SCH (21:06)
[2023-02-27] MEDS: tiZANidine HCl 4 MG TAB PO PRN ×3 (01:41→20:56)
[2023-02-27] MEDS: Ascorbic Acid 500 mg Chewable Tablet PO SCH ×4 (01:41→20:52)
[2023-02-27] MEDS: Acetaminophen 325 MG TAB PO PRN ×3 (03:26→20:55)
[2023-02-27] MEDS ORDERED: diphenhydrAMINE 25 MG CAP PO SCH (03:30)
[2023-02-27 04:29] LABS: #Eosinphils 0.1 thou/uL (0.0-0.7); #Monocytes 0.5 thou/uL (0.11-0.59); #Neutrophils 5.1 thou/uL (1.40-6.50); %Basophils 0.5 % (0.0-1.0); %Eosinophils 1.8 % (0.0-10.0); %Lymphocytes 20.3 % (21.0-51.0); %Monocytes 7.4 % (0.0-10.0); %Neutrophils 69.6 % (42.0-75.0); Hematocrit 23.3 % (36.0-47.0); Hemoglobin 7.3 g/dL (12.0-16.0); Mean Corpuscular HGB CONC 31.3 g/dL (32.0-36.0); Mean Corpuscular Hemoglobin 29.1 pg (27.0-31.0); Mean Corpuscular Volume 92.8 fl (78.0-98.0); Mean Platelet Volume 9.7 fL (7.4-10.4); Platelet Count 305 10x3/uL (130-400); RBC Distribution Width 14.1 % (11.5-14.5); Red Blood Cell (RBC) Count 2.51 mill/uL (4.20-5.40); White Blood Cell (WBC) Count 7.3 10x3/uL (4.8-10.8)
[2023-02-27 04:55] LABS: ALT (SGPT) 8 U/L (8-55); AST (SGOT) 18 U/L (5-34); Albumin 2.1 g/dL (3.4-4.8); Alkaline Phosphatase 52 U/L (40-110); Anion Gap 13 mmol/L (10-20); BUN (Urea Nitrogen) 47 mg/dL (9.8-20.1); Bilirubin, Total 0.3 mg/dL (0.2-1.2); Calc. Creatinine Clearance 33 mL/min (70-130); Carbon Dioxide 32 mmol/L (23-31); Chloride 97 mmol/L (98-107); Estimated GFR 22; Globulin 3.7 g/dL (2.4-3.5); Glucose 135 mg/dL (83-110); Potassium 3.6 mmol/L (3.5-5.1); Protein, Total 5.8 g/dL (5.8-8.1); Sodium 138 mmol/L (136-145)
[2023-02-27] MEDS: Furosemide 40 MG TAB PO SCH (06:38)
[2023-02-27] MEDS: Loperamide HCl 2 MG CAP PO PRN (07:56)
[2023-02-27] MEDS: Thiamine 100 MG TAB PO SCH (09:02)
[2023-02-27] MEDS: Lorazepam 0.5 MG TAB PO SCH (09:02)
[2023-02-27] MEDS: Aspirin Chewable 81 MG TAB PO SCH (09:02)
[2023-02-27] MEDS: Famotidine 20 MG TAB PO SCH (09:02)
[2023-02-27] MEDS: Saccharomyces boulardii 250 MG CAP PO SCH (09:03)
[2023-02-27] MEDS: Collagenase 250 UNITS/GM Ointment 30 GM TUBE TOP SCH (09:03)
[2023-02-27] MEDS: pyridOXINE 50 MG (B6) TAB PO SCH ×2 (09:03→20:55)
[2023-02-27] MEDS: Zinc Sulfate 220 MG CAP PO SCH (09:03)
[2023-02-27] MEDS: DULoxetine 30 MG CAP PO SCH (09:03)
[2023-02-27] MEDS: Clopidogrel Bisulfate 75 MG TAB PO SCH (10:06)
[2023-02-27] MEDS: Carvedilol 25 MG TAB PO SCH (10:06)
[2023-02-27] MEDS: Minoxidil 2.5 MG TAB PO SCH ×2 (10:07→20:55)
[2023-02-27 13:23] LABS: Hematocrit 24.1 % (36.0-47.0); Hemoglobin 7.6 g/dL (12.0-16.0)
[2023-02-27] MEDS: Cholecalciferol 1,000 UNITS (25 MCG) TAB PO SCH (20:53)
[2023-02-27] MEDS: Heparin 5,000 UNITS/ML VIAL SC SCH (20:54)
[2023-02-27] MEDS: Melatonin 3 MG TAB PO SCH (20:54)
[2023-02-28] MEDS: Ascorbic Acid 500 mg Chewable Tablet PO SCH ×4 (00:17→20:30)
[2023-02-28] MEDS ORDERED: Lactated Ringer's 500 ML IV SCH (03:15)
[2023-02-28 04:18] LABS: #Basophils 0.1 thou/uL (0.0-0.2); #Eosinphils 0.1 thou/uL (0.0-0.7); #Monocytes 0.6 thou/uL (0.11-0.59); #Neutrophils 3.5 thou/uL (1.40-6.50); %Basophils 0.8 % (0.0-1.0); %Lymphocytes 32.1 % (21.0-51.0); %Neutrophils 55.6 % (42.0-75.0); Hematocrit 25.7 % (36.0-47.0); Mean Corpuscular HGB CONC 31.1 g/dL (32.0-36.0); Mean Corpuscular Volume 93.1 fl (78.0-98.0); Mean Platelet Volume 9.3 fL (7.4-10.4); Platelet Count 311 10x3/uL (130-400); RBC Distribution Width 14.1 % (11.5-14.5); Red Blood Cell (RBC) Count 2.76 mill/uL (4.20-5.40); White Blood Cell (WBC) Count 6.4 10x3/uL (4.8-10.8)
[2023-02-28 04:47] LABS: ALT (SGPT) 8 U/L (8-55); AST (SGOT) 14 U/L (5-34); Albumin 2.2 g/dL (3.4-4.8); Alkaline Phosphatase 56 U/L (40-110); Anion Gap 13 mmol/L (10-20); BUN (Urea Nitrogen) 44 mg/dL (9.8-20.1); Bilirubin, Total 0.4 mg/dL (0.2-1.2); Calc. Creatinine Clearance 34 mL/min (70-130); Calcium 8.2 mg/dL (7.8-10.44); Carbon Dioxide 30 mmol/L (23-31); Chloride 99 mmol/L (98-107); Estimated GFR 23; Globulin 3.8 g/dL (2.4-3.5); Glucose 91 mg/dL (83-110); Potassium 3.6 mmol/L (3.5-5.1); Sodium 138 mmol/L (136-145)
[2023-02-28] MEDS: Carvedilol 25 MG TAB PO SCH (08:30)
[2023-02-28] MEDS: Clopidogrel Bisulfate 75 MG TAB PO SCH (08:30)
[2023-02-28] MEDS: Furosemide 40 MG TAB PO SCH (08:30)
[2023-02-28] MEDS: Thiamine 100 MG TAB PO SCH (08:30)
[2023-02-28] MEDS: Aspirin Chewable 81 MG TAB PO SCH (08:30)
[2023-02-28] MEDS: Minoxidil 2.5 MG TAB PO SCH ×2 (08:30→20:30)
[2023-02-28] MEDS: Lorazepam 0.5 MG TAB PO SCH (08:30)
[2023-02-28] MEDS: DULoxetine 30 MG CAP PO SCH (08:32)
[2023-02-28] MEDS: pyridOXINE 50 MG (B6) TAB PO SCH ×2 (08:32→20:30)
[2023-02-28] MEDS: Famotidine 20 MG TAB PO SCH (08:32)
[2023-02-28] MEDS: Saccharomyces boulardii 250 MG CAP PO SCH (08:32)
[2023-02-28] MEDS: Heparin 5,000 UNITS/ML VIAL SC SCH ×2 (08:32→20:30)
[2023-02-28] MEDS: Zinc Sulfate 220 MG CAP PO SCH (09:00)
[2023-02-28] MEDS ORDERED: Ferrous Gluconate 324 MG TAB PO SCH (09:00)
[2023-02-28] MEDS: Collagenase 250 UNITS/GM Ointment 30 GM TUBE TOP SCH (11:47)
[2023-02-28] MEDS: Acetaminophen 325 MG TAB PO PRN ×2 (12:50→18:46)
[2023-02-28] MEDS ORDERED: Lidocaine 4% Patch TD PRN (19:34)
[2023-02-28] MEDS: Cholecalciferol 1,000 UNITS (25 MCG) TAB PO SCH (20:30)
[2023-02-28] MEDS: Melatonin 3 MG TAB PO SCH (20:30)
[2023-02-28] MEDS: tiZANidine HCl 4 MG TAB PO PRN (20:30)
[2023-03-01] MEDS: Acetaminophen 325 MG TAB PO PRN ×2 (03:15→11:37)
[2023-03-01] MEDS: tiZANidine HCl 4 MG TAB PO PRN ×2 (03:15→20:28)
[2023-03-01 04:08] LABS: #Basophils 0.1 thou/uL (0.0-0.2); #Eosinphils 0.1 thou/uL (0.0-0.7); #Monocytes 0.6 thou/uL (0.11-0.59); #Neutrophils 5.1 thou/uL (1.40-6.50); %Basophils 0.7 % (0.0-1.0); %Eosinophils 1.4 % (0.0-10.0); %Lymphocytes 23.2 % (21.0-51.0); %Neutrophils 66.3 % (42.0-75.0); Hematocrit 25.6 % (36.0-47.0); Hemoglobin 8.2 g/dL (12.0-16.0); Mean Corpuscular Hemoglobin 29.5 pg (27.0-31.0); Mean Corpuscular Volume 92.1 fl (78.0-98.0); Mean Platelet Volume 9.4 fL (7.4-10.4); Platelet Count 332 10x3/uL (130-400); RBC Distribution Width 13.8 % (11.5-14.5); Red Blood Cell (RBC) Count 2.78 mill/uL (4.20-5.40); White Blood Cell (WBC) Count 7.6 10x3/uL (4.8-10.8)
[2023-03-01 04:38] LABS: ALT (SGPT) 8 U/L (8-55); AST (SGOT) 14 U/L (5-34); Albumin 2.4 g/dL (3.4-4.8); Alkaline Phosphatase 63 U/L (40-110); Anion Gap 10 mmol/L (10-20); BUN (Urea Nitrogen) 43 mg/dL (9.8-20.1); Bilirubin, Total 0.5 mg/dL (0.2-1.2); Calc. Creatinine Clearance 35 mL/min (70-130); Calcium 8.5 mg/dL (7.8-10.44); Carbon Dioxide 33 mmol/L (23-31); Chloride 97 mmol/L (98-107); Estimated GFR 23; Glucose 105 mg/dL (83-110); Potassium 3.4 mmol/L (3.5-5.1); Protein, Total 6.4 g/dL (5.8-8.1); Sodium 137 mmol/L (136-145)
[2023-03-01] MEDS: Ascorbic Acid 500 mg Chewable Tablet PO SCH ×4 (05:12→20:28)
[2023-03-01] MEDS ORDERED: Potassium Chloride 20 MEQ TAB PO SCH ×2 (05:45→08:00)
[2023-03-01 08:29] LABS: Magnesium 1.2 mg/dL (1.6-2.6)
[2023-03-01] MEDS ORDERED: Magnesium 2 GM/50 ML(in water) 2 GM in Premix Bag 1 BAG IVPB SCH ×2 (08:45→09:00)
[2023-03-01] MEDS ORDERED: Magnesium Sulfate In Water 4 GM in Premix Bag 1 BAG IVPB SCH ×2 (09:00)
[2023-03-01] MEDS: Saccharomyces boulardii 250 MG CAP PO SCH (09:36)
[2023-03-01] MEDS: Famotidine 20 MG TAB PO SCH (09:37)
[2023-03-01] MEDS: Furosemide 40 MG TAB PO SCH (09:37)
[2023-03-01] MEDS: Minoxidil 2.5 MG TAB PO SCH ×2 (09:38→20:28)
[2023-03-01] MEDS: Zinc Sulfate 220 MG CAP PO SCH (09:38)
[2023-03-01] MEDS: pyridOXINE 50 MG (B6) TAB PO SCH ×2 (09:38→20:26)
[2023-03-01] MEDS: Carvedilol 25 MG TAB PO SCH (09:38)
[2023-03-01] MEDS: Clopidogrel Bisulfate 75 MG TAB PO SCH (09:38)
[2023-03-01] MEDS: Aspirin Chewable 81 MG TAB PO SCH (09:38)
[2023-03-01] MEDS: Collagenase 250 UNITS/GM Ointment 30 GM TUBE TOP SCH (09:39)
[2023-03-01] MEDS: Heparin 5,000 UNITS/ML VIAL SC SCH ×2 (09:39→20:29)
[2023-03-01] MEDS ORDERED: traMADol HCl 50 MG TAB PO PRN (09:39)
[2023-03-01] MEDS: Thiamine 100 MG TAB PO SCH (09:39)
[2023-03-01] MEDS: Lorazepam 0.5 MG TAB PO SCH (09:39)
[2023-03-01] MEDS: DULoxetine 30 MG CAP PO SCH (09:41)
[2023-03-01] MEDS ORDERED: Magnesium Oxide 400 MG TAB PO SCH ×2 (11:30→21:00)
[2023-03-01] MEDS: Cholecalciferol 1,000 UNITS (25 MCG) TAB PO SCH (20:26)
[2023-03-01] MEDS: Melatonin 3 MG TAB PO SCH (20:28)
[2023-03-01 21:47] VITALS: BP 139/63; TEMP 99.7
[2023-03-05] MEDS ORDERED: Epoetin (ESRD) 10,000 UNITS/ML VIAL SC SCH (09:00)
== END 2023-03-01 22:00 | DRG 981 ==
LOC: ERS 13:52 → CCU 16:13 → T4-A 02-24 10:59 → CCU 02-26 01:11 → 2NO 02-28 13:28
PROVIDERS: ADMIT Family Medicine; ATTEND Family Medicine
PROC: 5A1945Z Respiratory Ventilation, 24-96 Consecutive Hours (ICD-10-PCS; 2023-02-21)
PROC: 4A133R1 Monitoring of Arterial Saturation, Peripheral, Percutaneous Approach (ICD-10-PCS; 2023-02-21)
PROC: 02HV33Z Insertion of Infusion Device into Superior Vena Cava, Percutaneous Approach (ICD-10-PCS; 2023-02-21)
PROC: B548ZZA Ultrasonography of Superior Vena Cava, Guidance (ICD-10-PCS; 2023-02-21)
PROC: 0QB10ZZ Excision of Sacrum, Open Approach (ICD-10-PCS; principal; 2023-02-23)
PROC: 5A09457 Assistance with Respiratory Ventilation, 24-96 Consecutive Hours, Continuous Positive Airway Pressure (ICD-10-PCS; 2023-02-26)
PROC: 30233J1 Transfusion of Nonautologous Serum Albumin into Peripheral Vein, Percutaneous Approach (ICD-10-PCS; 2023-02-28)
DX: J96.21 Acute and chronic respiratory failure with hypoxia (principal); I50.43 Acute on chronic combined systolic (congestive) and diastolic (congestive) heart failure; N18.6 End stage renal disease; R53.2 Functional quadriplegia; E87.3 Alkalosis; G93.49 Other encephalopathy; E87.20 Acidosis, unspecified; L89.150 Pressure ulcer of sacral region, unstageable; J96.22 Acute and chronic respiratory failure with hypercapnia; Z96.643 Presence of artificial hip joint, bilateral; E66.01 Morbid (severe) obesity due to excess calories; I16.0 Hypertensive urgency; T42.4X1A Poisoning by benzodiazepines, accidental (unintentional), initial encounter; R53.81 Other malaise; D63.1 Anemia in chronic kidney disease; C53.9 Malignant neoplasm of cervix uteri, unspecified; T68.XXXA Hypothermia, initial encounter; X58.XXXA Exposure to other specified factors, initial encounter; E11.22 Type 2 diabetes mellitus with diabetic chronic kidney disease; G47.33 Obstructive sleep apnea (adult) (pediatric); Z88.8 Allergy status to other drugs, medicaments and biological substances; Z88.0 Allergy status to penicillin; Z87.891 Personal history of nicotine dependence; Z86.73 Personal history of transient ischemic attack (TIA), and cerebral infarction without residual deficits; Z88.6 Allergy status to analgesic agent; Z68.34 Body mass index [BMI] 34.0-34.9, adult
CPT/HCPCS: 36415; 36416; 36556; 36600; 51702; 70450; 70496; 70498; 71045; 76770; 80053; 80202; 81001; 82533; 82550; 82805; 83010; 83605; 83615; 83735; 83880; 84145; 84439; 84443; 84484; 85025; 85046; 85610; 85730; 86850; 86900; 86901; 87040; 93005; 93010; 94002; 94003; 94660; 94760; 96365; 96366; 96368; 96374; 97139; 99292; C9113; J0692; J1644; J1650; J1940; J2185; J3370-JW; J3475; J3480; J3490; J7120; P9045; Q9967